=== PATIENT | male | born 1950 | race Caucasian/White ===

== ENCOUNTER 2018-01-19 16:47 | Inpatient (IN) | payer MEDICARE, OTHER ==
[~2018-01-19] VITALS: Ht 177.8 cm; Wt 112.5 kg
[2018-01-19 16:54] VITALS: BP 179/79; PULSE 78; RESP 18; TEMP 98.3; O2SAT 97
[2018-01-19] MEDS ORDERED: NITROGLYCERIN 2% OINT 1 GM PACKET TOP ONE (17:00)
[2018-01-19] MEDS ORDERED: ONDANSETRON HCL 4 MG/2 ML VIAL IV PUSH ONE (17:00)
[2018-01-19] MEDS ORDERED: MORPHINE SULFATE 4 MG/ML INJ IV PUSH ONE (17:00)
[2018-01-19] MEDS: METOPROLOL TARTRATE 5 MG/5 ML VIAL IVS SCH ×4 (17:00→17:25)
[2018-01-19 17:02] VITALS: BP_SYST 179; BP_SYST 201; BP_DIAS 101; BP_DIAS 77; PULSE 75; RESP 18; O2SAT 98
--- NOTE | 2018-01-19 17:02 | PD ---
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 Patient experience onset of chest pressure since this morning now going on about 10-11 hours. It has been intermittent, pressure -like substernal, rated about from 4 to as high as 6 out of 10, denied any shortness of breath or diaphoresis affiliated with this symptoms. The patient has a history of a triple bypass within the last 5 years. No known drug allergy Past medical history significant for coronary artery disease, triple bypass, hypercholesterolemia, hypertension. PFSH Social History Tobacco Use: No Allergies-Medications (Allergen,Severity, Reaction): Coded Allergies: No Known Allergies (Unverified , 01/19/18) Reported Meds & Prescriptions Reported Meds & Active Scripts Active Reported Oxycodone (Oxycodone HCl) 5 Mg Cap 5 Mg PO DAILY NEEDED PRN Aspirin 81 Mg Chew 81 Mg CHEW DAILY Vitamin D3 (Cholecalciferol) 2,000 Unit Cap 2,000 Units PO DAILY Vitamin B Complex (B-Complex Vitamins) 1 Tab 1,000 Mcg PO DAILY Hydralazine HCl 10 Mg Tablet 1 Tab PO TID Atorvastatin (Atorvastatin Calcium) 80 Mg Tab 80 Mg PO HS Carvedilol 25 Mg Tab 25 Mg PO BID Irbesartan 300 Mg Tab 300 Mg PO DAILY Review of Systems General / Constitutional: No: Fever Eyes: No: Visual changes HENT: No: Headaches Cardiovascular: Positive: Chest Pain or Discomfort Respiratory: No: Shortness of Breath Gastrointestinal: No: Abdominal Pain Genitourinary: No: Dysuria Musculoskeletal: No: Pain Skin: No Rash Neurologic: No: Weakness Psychiatric: No: Depression Endocrine: No: Polydipsia Hematologic/Lymphatic: No: Easy Bruising Physical Exam Narrative GENERAL: SKIN: Warm and dry. HEAD: Atraumatic. Normocephalic. EYES: Pupils equal and round. No scleral icterus. No injection or drainage. ENT: No nasal bleeding or discharge. Mucous membranes pink and moist. NECK: Trachea midline. No JVD. CARDIOVASCULAR: Regular rate and rhythm. RESPIRATORY: No accessory muscle use. Clear to auscultation. Breath sounds equal bilaterally. GASTROINTESTINAL: Abdomen soft, non-tender, nondistended. MUSCULOSKELETAL: Extremities without clubbing, cyanosis, or edema. No obvious deformities. NEUROLOGICAL: Awake and alert. No obvious cranial nerve deficits. Motor grossly within normal limits. Five out of 5 muscle strength in the arms and legs. Normal speech. PSYCHIATRIC: Appropriate mood and affect; insight and judgment normal. Data Data Last Documented VS Vital Signs Date Time Temp Pulse Resp B/P (MAP) Pulse Ox O2 Delivery O2 Flow Rate FiO2 01/19/18 17:38 62 18 165/70 (101) 97 Room Air 01/19/18 16:54 98.3 Orders Orders Electrocardiogram (01/19/18 16:49) B-Type Natriuretic Peptide (01/19/18 16:49) Ckmb (Isoenzyme) Profile (01/19/18 16:49) Complete Blood Count With Diff (01/19/18 16:49) Comprehensive Metabolic Panel (01/19/18 16:49) Prothrombin Time / Inr (Pt) (01/19/18 16:49) Act Partial Throm Time (Ptt) (01/19/18 16:49) Troponin I (01/19/18 16:49) Lipase (01/19/18 16:49) Chest, Single Ap (01/19/18 16:49) Ecg Monitoring (01/19/18 16:49) Bilateral Bp Monitoring (01/19/18 16:49) Iv Access Insert/Monitor (01/19/18 16:49) Oximetry (01/19/18 16:49) Oxygen Administration (01/19/18 16:49) Morphine Inj (Morphine Inj) (01/19/18 17:00) Nitroglycerin 2% Oint (Nitroglycerin 2% (01/19/18 17:00) Metoprolol Tartrate Inj (Lopressor Inj) (01/19/18 17:00) Ondansetron Inj (Zofran Inj) (01/19/18 17:00) CKMB (01/19/18 16:50) CKMB% (01/19/18 16:50) Admit Order (Ed Use Only) (01/19/18 18:02) Labs Laboratory Tests Test 01/19/18 16:50 White Blood Count 6.7 TH/MM3 Red Blood Count 4.59 MIL/MM3 Hemoglobin 14.4 GM/DL Hematocrit 42.7 % Mean Corpuscular Volume 93.0 FL Mean Corpuscular Hemoglobin 31.3 PG Mean Corpuscular Hemoglobin Concent 33.6 % Red Cell Distribution Width 12.6 % Platelet Count 176 TH/MM3 Mean Platelet Volume 7.9 FL Neutrophils (%) (Auto) 63.7 % Lymphocytes (%) (Auto) 13.9 % Monocytes (%) (Auto) 15.6 % Eosinophils (%) (Auto) 5.5 % Basophils (%) (Auto) 1.3 % Neutrophils # (Auto) 4.2 TH/MM3 Lymphocytes # (Auto) 0.9 TH/MM3 Monocytes # (Auto) 1.1 TH/MM3 Eosinophils # (Auto) 0.4 TH/MM3 Basophils # (Auto) 0.1 TH/MM3 CBC Comment DIFF FINAL Differential Comment Prothrombin Time 10.8 SEC Prothromb Time International Ratio 1.1 RATIO Activated Partial Thromboplast Time 30.2 SEC Blood Urea Nitrogen 14 MG/DL Creatinine 0.71 MG/DL Random Glucose 99 MG/DL Total Protein 7.6 GM/DL Albumin 4.0 GM/DL Calcium Level 9.2 MG/DL Alkaline Phosphatase 68 U/L Aspartate Amino Transf (AST/SGOT) 24 U/L Alanine Aminotransferase (ALT/SGPT) 32 U/L Total Bilirubin 0.8 MG/DL Sodium Level 126 MEQ/L Potassium Level 4.2 MEQ/L Chloride Level 93 MEQ/L Carbon Dioxide Level 26.7 MEQ/L Anion Gap 6 MEQ/L Estimat Glomerular Filtration Rate 110 ML/MIN Total Creatine Kinase 112 U/L Creatine Kinase MB 1.4 NG/ML Troponin I LESS THAN 0.02 NG/ML B-Type Natriuretic Peptide 174 PG/ML Lipase 230 U/L [facility] Medical Decision Making Medical Screen Exam Complete: Yes Emergency Medical Condition: Yes Medical Record Reviewed: Yes Interpretation(s) EKG shows a normal sinus rhythm at 72 bpm, first-degree AV block, no acute ST elevation PR pattern noted. There is some incomplete bundle branch block pattern. Differential Diagnosis STEMI versus non-STEMI versus PE versus pneumonia versus hypertensive emergency Narrative Course Patient's blood pressure was 225/105, at the bedside when the patient stated that his pain had decreased to about 2 out of 10... The patient makes us aware that he has taken four 81 mg aspirins prior to arrival. Coagulation profile is within normal limits CBC shows no leukocytosis, no anemia, normal platelet count, and no left shift. Electrolytes shows hyponatremia 126, otherwise the rest of the electrolytes are all within normal limits including glucose of 99. Liver functions and pancreatic functions are all within normal limits. First set of cardiac enzymes are negative. And the beta natruretic peptide is 174 mildly elevated Chest x-ray was read by radiologist as a possible cardiomegaly difficult to rule out a small left infiltrate, and believe that the increased density overlying the left lower chest could be related to cardiomegaly.... Upon evaluation based on the patient's presenting symptoms, there is no coughing there is no fever there is no runny nose there is no URI type symptoms to corroborate a possible infiltrate at this time. Diagnosis Primary Impression: Accelerated hypertension Additional Impression: Chest pain Admitting Information Admitting Physician Requests: Observation Scripts Ticagrelor (Brilinta) 90 Mg Tab 90 MG PO BID for Blood Clot Prevention for 30 Days, #60 TAB 11 Refills Prov: Ed Baker MD 01/21/18 Santi Deleon MD Jan 19, 2018 17:02
[2018-01-19 17:05] LABS: AUTOMATED NEUTROPHIL # 4.2 TH/MM3 (1.8-7.7); BASOPHIL # 0.1 TH/MM3 (0-0.2); BASOPHIL % 1.3 % (0.0-2.0); EOSINOPHIL # 0.4 TH/MM3 (0-0.4); EOSINOPHIL % 5.5 % (0.0-4.0); HEMATOCRIT 42.7 % (39.0-51.0); HEMOGLOBIN 14.4 GM/DL (13.0-17.0); LYMPH % 13.9 % (9.0-44.0); LYMPHOCYTE # 0.9 TH/MM3 (1.0-4.8); MEAN CORPUSCULAR HEMOGLOBIN 31.3 PG (27.0-34.0); MEAN CORPUSCULAR HGB CONC 33.6 % (32.0-36.0); MEAN PLATELET VOLUME 7.9 FL (7.0-11.0); MONO % 15.6 % (0.0-8.0); MONOCYTE # 1.1 TH/MM3 (0-0.9); NEUT % 63.7 % (16.0-70.0); PLATELET COUNT 176 TH/MM3 (150-450); RED BLOOD COUNT 4.59 MIL/MM3 (4.50-5.90); RED CELL DISTRIBUTION WIDTH 12.6 % (11.6-17.2); WHITE BLOOD COUNT 6.7 TH/MM3 (4.0-11.0)
[2018-01-19 17:16] LABS: CHLORIDE 93 MEQ/L (98-107); SODIUM (NA) 126 MEQ/L (136-145)
[2018-01-19 17:19] LABS: CALCIUM 9.2 MG/DL (8.5-10.1); GLUCOSE,RANDOM 99 MG/DL (74-106)
[2018-01-19] MEDS ORDERED: CARV25TA PO (17:19)
[2018-01-19] MEDS ORDERED: ASPI-516 CHEW (17:19)
[2018-01-19] MEDS ORDERED: VITATAB11 PO (17:19)
[2018-01-19] MEDS ORDERED: IRBE300T11 PO (17:19)
[2018-01-19] MEDS ORDERED: HYDR-3798 PO (17:19)
[2018-01-19] MEDS ORDERED: VITA2000 PO (17:19)
[2018-01-19] MEDS ORDERED: ATOR80TA45 PO (17:19)
--- NOTE | 2018-01-19 17:19 | RADRPT ---
EXAM DATE/TIME: 01/19/2018 16:51 [facility] COMPARISON: No previous studies available for comparison. INDICATIONS : Chest pain. MEDICAL HISTORY : Hypertension. SURGICAL HISTORY : CABG. Right shoulder replacement. ENCOUNTER: Initial ACUITY: 1 day PAIN SCORE: 6/10 LOCATION: Bilateral chest FINDINGS: A single view of the chest demonstrates increased opacification over the left lung may be related to the cardiomegaly. Difficult to rule out a small left infiltrate. The right lung is clear. Right shoul elisa hemiarthroplasty. Numerous sternal wires.. The cardiomediastinal contours are unremarkable. Oss eous structures are intact. CONCLUSION: Increased density overlies the left lower chest could related to cardiomegaly. Ed Rios MD on January 19, 2018 at 17:15 Board Certified Radiologist. This report was verified electronically.
[2018-01-19 17:20] LABS: BICARBONATE 26.7 MEQ/L (21.0-32.0); BLOOD UREA NITROGEN 14 MG/DL (7-18)
[2018-01-19 17:21] LABS: INTERNATIONAL NORMALIZED RATIO 1.1 RATIO; PROTHROMBIN TIME - PATIENT 10.8 SEC (9.8-11.6)
[2018-01-19 17:22] LABS: ALT (GPT) 32 U/L (12-78); AST (GOT) 24 U/L (15-37)
[2018-01-19 17:23] LABS: CREATININE 0.71 MG/DL (0.60-1.30); GLOMERULAR FILTRATION RATE 110 ML/MIN (>89)
[2018-01-19 17:24] LABS: TOTAL BILIRUBIN ADULT 0.8 MG/DL (0.2-1.0); TOTAL PROTEIN 7.6 GM/DL (6.4-8.2)
[2018-01-19 17:25] LABS: ALKALINE PHOSPHATASE 68 U/L (45-117)
[2018-01-19 17:27] LABS: TROPONIN I LESS THAN 0.02 NG/ML (0.02-0.05)
[2018-01-19 17:38] VITALS: BP 165/70; PULSE 62; RESP 18; O2SAT 97
[2018-01-19 18:25] VITALS: BP 165/78; PULSE 68; RESP 17; O2SAT 96
[2018-01-19] MEDS ORDERED: ASPIRIN 81 MG CHEW TAB CHEW ONE (19:00)
[2018-01-19] MEDS ORDERED: ATORVASTATIN 80 MG TAB PO SCH (21:00)
[2018-01-19] MEDS ORDERED: CARVEDILOL 12.5 MG TAB PO SCH (21:00)
[2018-01-19] MEDS ORDERED: OXYC1CAP PO (21:08)
[2018-01-19 22:00] VITALS: PULSE 61
[2018-01-19] MEDS: ATORVASTATIN 40 MG TAB PO SCH (22:10)
[2018-01-19 22:13] VITALS: BP 188/80
[2018-01-19] MEDS ORDERED: cloNIDine HCL 0.1 MG TAB PO ONE (23:00)
[2018-01-19] MEDS: ACETAMINOPHEN 325 MG TAB PO PRN (23:10)
[2018-01-20] VITALS (10 sets, daily range): BP systolic 137–197; BP diastolic 65–97; PULSE 58–95; RESP 16–22; TEMP 96.1–97.7; O2SAT 90–97
[2018-01-20] MEDS ORDERED: LOSARTAN 50 MG TAB PO SCH (06:30)
[2018-01-20] MEDS ORDERED: CARVEDILOL 12.5 MG TAB PO SCH (06:30)
[2018-01-20] MEDS ORDERED: hydrALAZINE HCL 10 MG TAB PO SCH ×2 (06:30→13:00)
[2018-01-20] MEDS ORDERED: hydrALAZINE HCL 10 MG TAB PO ONE (07:45)
[2018-01-20] MEDS ORDERED: cloNIDine HCL 0.1 MG TAB PO PRN (07:45)
[2018-01-20] MEDS ORDERED: IRBESARTAN 150 MG TAB PO SCH ×2 (09:00)
[2018-01-20 09:10] LABS: CALCIUM 9.5 MG/DL (8.5-10.1)
[2018-01-20 09:14] LABS: CREATININE 0.56 MG/DL (0.60-1.30)
[2018-01-20] MEDS ORDERED: REGADENOSON INJ 0.4 MG/5 ML SYR IV ONE (13:15)
--- NOTE | 2018-01-20 13:19 | HHI.HP ---
[facility] Primary [facility] Physician Non-Staff Admission Diagnosis ACS, ACCELERATED HTN Diagnoses: (1) Chest pressure Diagnosis: Principal Travel History International Travel<30 Days: No Contact w/Intl Traveler <30 Da: No Traveled to Known Affected Are: No History of Present Illness This is a 67-year-old male with known history of hypertension, hyperlipidemia, coronary disease status post CABG, chronic right shoulder pain who presented to the hospital because of abdominal pain, chest pressure, shortness of breath. Patient states that he is down here visiting from [place] for another 2 weeks. Approximately 2 days ago he started developing a mid abdominal discomfort with gas type pressure. He did use Gas-X with some relief but not complete resolution. Pressure sensation did not improve and the pain started to go up higher in his epigastric region and he states that it gets worse whenever he eats, whenever he does not eat it does improve. Yesterday he started developing shortness of breath, and because that reason he was concerned that it may be underlying cardiac issue. He denies any actual chest pain, he has not had any nausea, vomiting, diaphoresis, lightheadedness, dizziness. Patient does have a medical office asst in [place] in his last stress test was done in January 2017 in which he underwent a myocardial perfusion study which patient do not indicate that there was any abnormality. Patient had workup done emergency department patient was found to have elevated blood pressure. Patient states that lately his blood pressures been running in the 170s. His doctor in [place] has been adjusting medications to improve his blood pressure. Patient was on Apresoline to 25 mg 3 times daily, however it made him too tired so they went back down to 10 mg 3 times daily. After discussing with the patient his risk factors and presenting symptoms. The patient and family at bedside are in agreement with moving forward with evaluating for any underlying ischemia with stress test. Patient is asymptomatic currently. Review of Systems Respiratory: COMPLAINS OF: Shortness of breath Cardiovascular: COMPLAINS OF: Chest pain Gastrointestinal: COMPLAINS OF: Abdominal pain Except as stated in HPI: all other systems reviewed are Neg Past Family Social History Past Medical History Hypertension Hyperlipidemia Coronary artery disease Chronic right shoulder pain Past Surgical History Coronary bypass surgery three-vessel Right shoulder surgery Benign prostate tumor removed Cataract surgery Reported Medications Reported Meds & Active Scripts Active Reported Oxycodone (Oxycodone HCl) 5 Mg Cap 5 Mg PO DAILY NEEDED PRN Aspirin 81 Mg Chew 81 Mg CHEW DAILY Vitamin D3 (Cholecalciferol) 2,000 Unit Cap 2,000 Units PO DAILY Vitamin B Complex (B-Complex Vitamins) 1 Tab 1,000 Mcg PO DAILY Hydralazine HCl 10 Mg Tablet 1 Tab PO TID Atorvastatin (Atorvastatin Calcium) 80 Mg Tab 80 Mg PO HS Carvedilol 25 Mg Tab 25 Mg PO BID Irbesartan 300 Mg Tab 300 Mg PO DAILY Allergies: Coded Allergies: No Known Allergies (Unverified , 01/19/18) Family History Reviewed is significant for mother with heart disease, father was healthy without any significant chronic medical illnesses Social History Patient quit smoking 30 years ago, prior to that he smoked one half pack of cigarettes a day since he was 24 years old. He does drink 2 beers daily. Denies any illicit drug Physical Exam Vital Signs Vital Signs Date Time Temp Pulse Resp B/P (MAP) Pulse Ox O2 Delivery O2 Flow Rate FiO2 01/20/18 12:00 97.7 64 20 156/71 (99) 95 01/20/18 08:00 62 01/20/18 08:00 97.4 58 20 187/84 (118) 95 01/20/18 05:33 97.4 66 18 182/97 (125) 97 170/84 (112) 01/20/18 00:00 97.3 64 22 189/77 (114) 93 01/19/18 22:13 188/80 (116) 01/19/18 22:00 61 01/19/18 20:58 01/19/18 18:25 68 17 165/78 (107) 96 Room Air 01/19/18 17:38 62 18 165/70 (101) 97 Room Air 01/19/18 17:02 97 Room Air 01/19/18 17:02 97 Room Air 01/19/18 17:02 98 Room Air 01/19/18 17:02 75 18 201/101 (134) 179/77 (111) 01/19/18 16:54 98.3 78 18 179/79 (112) 97 Physical Exam GENERAL: Well-developed, well-nourished, in no acute distress. alert and orientated HEENT: Head is normocephalic without any lesions or masses noted. Facial features are symmetric. Eyes: Pupils equal round reactive to light. Extraocular muscles are intact. Conjunctivae were clear. Oropharyngeal: Pharynx without any erythema edema. Tongue is midline without deviation. Buccal mucosa is moist without any masses or lesions NECK: Supple without any masses. Trachea midline no deviation. No JVD, no bruits are appreciated CARDIAC: Regular rhythm, regular rate. S1/S2 are heard. No murmurs gallops or rubs. LUNGS: Clear to auscultation bilaterally. No wheeze, rhonchi or rales. No use of accessory muscles on inspiration or expiration. ABDOMEN: Soft, nontender. Nondistended. Bowel sounds heard in all 4 quadrants. No organomegaly or masses. Negative rebound, negative guarding EXTREMITIES: No edema, pulses are equal bilaterally. No cyanosis or clubbing NEUROLOGY: Mood and affect appear appropriate. Cranial nerves II through XII grossly intact. Muscle strength 5/5 in upper and lower extremities bilaterally. Deep tendon reflexes are 2+ in upper and lower extremities bilaterally. Laboratory Laboratory Tests Test 01/19/18 16:50 01/19/18 18:46 01/20/18 01:15 01/20/18 08:45 White Blood Count 6.7 Red Blood Count 4.59 Hemoglobin 14.4 Hematocrit 42.7 Mean Corpuscular Volume 93.0 Mean Corpuscular Hemoglobin 31.3 Mean Corpuscular Hemoglobin Concent 33.6 Red Cell Distribution Width 12.6 Platelet Count 176 Mean Platelet Volume 7.9 Neutrophils (%) (Auto) 63.7 Lymphocytes (%) (Auto) 13.9 Monocytes (%) (Auto) 15.6 Eosinophils (%) (Auto) 5.5 Basophils (%) (Auto) 1.3 Neutrophils # (Auto) 4.2 Lymphocytes # (Auto) 0.9 Monocytes # (Auto) 1.1 Eosinophils # (Auto) 0.4 Basophils # (Auto) 0.1 CBC Comment DIFF FINAL Differential Comment Prothrombin Time 10.8 Prothromb Time International Ratio 1.1 Activated Partial Thromboplast Time 30.2 Blood Urea Nitrogen 14 10 Creatinine 0.71 0.56 Random Glucose 99 106 Total Protein 7.6 Albumin 4.0 Calcium Level 9.2 9.5 Alkaline Phosphatase 68 Aspartate Amino Transf (AST/SGOT) 24 Alanine Aminotransferase (ALT/SGPT) 32 Total Bilirubin 0.8 Sodium Level 126 132 Potassium Level 4.2 4.2 Chloride Level 93 97 Carbon Dioxide Level 26.7 27.0 Anion Gap 6 8 Estimat Glomerular Filtration Rate 110 145 Total Creatine Kinase 112 Creatine Kinase MB 1.4 Troponin I LESS THAN 0.02 LESS THAN 0.02 LESS THAN 0.02 B-Type Natriuretic Peptide 174 Lipase 230 Result Diagram: 01/19/180 01/20/18 0845 Imaging Last Impressions Chest X-Ray 01/19/18 1649 Signed Impressions: Service Date/Time: Friday, January 19, 2018 16:51 - CONCLUSION: Increased density overlies the left lower chest could related to cardiomegaly. MD Ana Crump VTE Risk Assessment Ana VTE Risk Assessment: Mod/High Risk (score >= 2) Ana Risk Assessment Model Point Value = 1 Point Value = 2 Point Value = 3 Point Value = 5 Age 41-60 Minor surgery BMI > 25 kg/m2 Swollen legs Varicose veins or History of unexplained or recurrent spontaneous Oral contraceptives or hormone replacement Sepsis (< 1 month) Serious lung disease, including pneumonia (< 1 month) Abnormal pulmonary function Acute myocardial infarction Congestive heart failure (< 1 month) History of inflammatory bowel disease Medical patient at bed rest Age 61-74 Arthroscopic surgery Major open surgery (> 45 min) Laparoscopic surgery (> 45 min) Malignancy Confined to bed (> 72 hours) Immobilizing plaster cast Central venous access Age >= 75 History of VTE Family history of VTE Factor V Leiden Prothrombin [id number] Lupus anticoagulant Anticardiolipin antibodies Elevated serum homocysteine Heparin-induced thrombocytopenia Other congenital or acquired thrombophilia Stroke (< 1 month) Elective arthroplasty Hip, pelvis, or leg fracture Acute spinal cord injury (< 1 month) Prophylaxis Regimen Total Risk Factor Score Risk Level Prophylaxis Regimen 0-1 Low Early ambulation 2 Moderate Order ONE of the following: *Sequential Compression Device (SCD) *Heparin 5000 units SQ BID 3-4 Higher Order ONE of the following medications: *Heparin 5000 units SQ TID *Enoxaparin/Lovenox 40 mg SQ daily (WT < 150 kg, CrCl > 30 mL/min) *Enoxaparin/Lovenox 30 mg SQ daily (WT < 150 kg, CrCl > 10-29 mL/min) *Enoxaparin/Lovenox 30 mg SQ BID (WT < 150 kg, CrCl > 30 mL/min) AND/OR *Sequential Compression Device (SCD) 5 or more Highest Order ONE of the following medications: *Heparin 5000 units SQ TID (Preferred with Epidurals) *Enoxaparin/Lovenox 40 mg SQ daily (WT < 150 kg, CrCl > 30 mL/min) *Enoxaparin/Lovenox 30 mg SQ daily (WT < 150 kg, CrCl > 10-29 mL/min) *Enoxaparin/Lovenox 30 mg SQ BID (WT < 150 kg, CrCl > 30 mL/min) AND *Sequential Compression Device (SCD) Assessment and Plan Assessment and Plan Chest pressure with associated shortness of breath -Patient with significant risk factors to include age, hypertension, hyperlipidemia, carotid artery disease status post CABG, history of tobacco use -Patient has been ruled out for acute coronary event with serial cardiac enzymes that are negative -Serial EKGs were performed and indicated sinus rhythm with first-degree AV block -Myocardial perfusion study performed and indicated moderate size, moderate severity perfusion defect -Continue aspirin, Coreg, nitropaste, ARB, Statin -Notified patient and of results and need for cardiology consult and cardiac cath for further eval, They understand and are in agreement with plan -Tried to contact patients medical office asst, Dr Montanez, in [place], he is in rd lab technician today, waiting for return phone call, (Nurse Shira: [phone]) -Consulted Cardiology, Dr Baker, Notified him of stress test result, He indicated that patient will need cardiac cath, has been scheduled for tomorrow AM Accelerated hypertension -Patient did have continued chest pressure shortness of breath with associated accelerated hypertension -Patient resumed on his home medications -Did increase to Apresoline 20 mg 3 times daily -Blood pressure has improved Hyperlipidemia -Resume Statin -Check lipid panel DVT prevention -Sequential compression devices Devon Cisneros Jan 20, 2018 13:19
--- NOTE | 2018-01-20 14:26 | RADRPT ---
EXAM DATE/TIME: 01/20/2018 13:05 [facility] COMPARISON: No previous studies available for comparison. INDICATIONS : Substernal chest pain. Angina. Myocardial infarction. DOSE: 35 mCi Tc99m Myoview at stress. 11 mCi Tc99m Myoview at rest. 0.4 mg Lexiscan STRESS SYMPTOMS: Short of breath. EJECTION FRACTION: 41% MEDICAL HISTORY : Hypertension. SURGICAL HISTORY : CABG ENCOUNTER: Initial ACUITY: 1 day PAIN SCALE: 6/10 LOCATION: Substernal chest TECHNIQUE: The patient underwent pharmacologic stress with infusion of prescribed dose. Continuous ECG tracing was monitored during stress. Gated SPECT imaging was performed after stress and conventional SPECT i maging was performed at rest. The examination was performed on a SPECT/CT scanner, both attenuation and non-corrected datasets were reviewed. FINDINGS: DISTRIBUTION: The maximum perfused segment at stress is in the lateral wall. PERFUSION STUDY: There is a moderate size moderate severity reversible defect involving the mid and apical segments of the anterior wall with associated hypokinesis. Ischemia is not excluded. This does extend to the ape x. GATED STUDY: There is hypokinesia involving the anterior wall and apex. No dyskinesia is seen CONCLUSION: 1. Moderate size moderate severity defect involving the mid and apical portions of the anterior wall including the apex. Ischemia is not excluded. RISK CATEGORY: Intermediate (1-3% Annual Mortality Rate) Kevin Blancas MD on January 20, 2018 at 14:22 Board Certified Radiologist. This report was verified electronically.
[2018-01-20] MEDS: hydrALAZINE HCL 10 MG TAB PO SCH ×2 (14:51→16:41)
[2018-01-20] MEDS ORDERED: NITROGLYCERIN 2% OINT 1 GM PACKET TOPICAL ONE (15:45)
[2018-01-20] MEDS: ASPIRIN 325 MG TAB PO SCH (16:40)
[2018-01-20] MEDS: ACETAMINOPHEN 325 MG TAB PO PRN ×2 (16:44→21:11)
--- NOTE | 2018-01-20 17:47 | EKG ---
Date Performed: 01/19/2018 Time Performed: 16:49:52 PTAGE: 67 years EKG: Sinus rhythm WITH FIRST DEGREE AV BLOCK MODERATE INTRAVENTRICULAR CONDUCTION DELAY ABNORMAL ECG INTERPRETATION BA SED ON A DEFAULT AGE OF 40 YEARS now consider inferior DE, age indeterminate NO PREVIOUS TRACING DOCTOR: Shiv Fortune Interpretating Date/Time 01/20/2018 17:47:49
--- NOTE | 2018-01-20 17:48 | EKG ---
Date Performed: 01/20/2018 Time Performed: 01:10:45 PTAGE: 67 years EKG: Sinus rhythm WITH FIRST DEGREE AV BLOCK POSSIBLE INFERIOR MYOCARDIAL INFARCTION ABNORMAL ECG now consider inferio r MN, age indeterminate PREVIOUS TRACING : 01/19/2018 19.34 DOCTOR: Shiv Fortune Interpretating Date/Time 01/20/2018 17:48:07
--- NOTE | 2018-01-20 17:48 | EKG ---
Date Performed: 01/19/2018 Time Performed: 19:34:37 PTAGE: 67 years EKG: Sinus rhythm WITH FIRST DEGREE AV BLOCK INFERIOR MYOCARDIAL INFARCTION ABNORMAL ECG now consider inferior UT, age indeterminate PREVIOUS TRACING : 01/19/2018 16.49 DOCTOR: Shiv Fortune Interpretating Date/Time 01/20/2018 17:47:59
[2018-01-20] MEDS ORDERED: NITROGLYCERIN 2% OINT 1 GM PACKET TOPICAL SCH (18:00)
[2018-01-20] MEDS ORDERED: ATORVASTATIN 40 MG TAB PO SCH (21:00)
[2018-01-20] MEDS: CARVEDILOL 12.5 MG TAB PO SCH (21:10)
[2018-01-20] MEDS: NITROGLYCERIN 2% OINT 1 GM PACKET TOPICAL SCH (21:11)
[2018-01-20] MEDS: ATORVASTATIN 40 MG TAB PO SCH (21:11)
[2018-01-21] VITALS (12 sets, daily range): BP systolic 96–180; BP diastolic 64–85; PULSE 63–83; RESP 15–20; TEMP 97.4–99.1; O2SAT 95–100
[2018-01-21] MEDS: NITROGLYCERIN 2% OINT 1 GM PACKET TOPICAL SCH ×2 (03:42→21:35)
[2018-01-21] MEDS: ACETAMINOPHEN 325 MG TAB PO PRN (03:43)
--- NOTE | 2018-01-21 08:04 | HHI.PR ---
Subjective Remarks 67-year-old male who was seen in follow-up today for accelerated hypertension, chest pain, abnormal stress test. Patient is doing well. Denies any recurrent chest pressure or burning sensation. Patient transferring to the main hospital for catheterization this morning. Vital signs are stable. Patient remains afebrile Objective Vitals Vital Signs Date Time Temp Pulse Resp B/P (MAP) Pulse Ox O2 Delivery O2 Flow Rate FiO2 01/21/18 04:00 97.4 63 15 129/70 (89) 96 01/21/18 00:00 99.1 80 16 96/64 (75) 100 01/20/18 23:00 68 01/20/18 20:00 96.1 79 16 137/75 (95) 90 01/20/18 17:50 139/65 (89) 01/20/18 16:45 65 01/20/18 16:37 64 196/90 (125) 01/20/18 16:00 97.7 95 19 197/97 (130) 97 01/20/18 12:00 97.7 64 20 156/71 (99) 95 I/O 01/20/18 01/20/18 01/20/18 01/21/18 01/21/18 01/21/18 07:00 15:00 23:00 07:00 15:00 23:00 Intake Total 120 ml 750 ml 0 ml Output Total 800 ml Balance 120 ml -50 ml 0 ml Intake Oral 120 ml 750 ml 0 ml Output Urine Total 800 ml # Voids 1 Result Diagram: 01/19/18 1650 01/20/18 0845 Objective Remarks GENERAL: Well-developed, well-nourished, in no acute distress. alert and orientated HEENT: Head is normocephalic without any lesions or masses noted. Facial features are symmetric. Eyes: Extraocular muscles are intact. Conjunctivae were clear. NECK: Supple without any masses. Trachea midline no deviation. No JVD, CARDIAC: Regular rhythm, regular rate. S1/S2 are heard. No murmurs gallops or rubs. LUNGS: Clear to auscultation bilaterally. No wheeze, rhonchi or rales. No use of accessory muscles on inspiration or expiration. ABDOMEN: Soft, nontender. Nondistended. Bowel sounds heard in all 4 quadrants. No organomegaly or masses. Negative rebound, negative guarding EXTREMITIES: No edema, pulses are equal bilaterally. No cyanosis or clubbing NEUROLOGY: Mood and affect appear appropriate. Cranial nerves II through XII grossly intact. Moving all extremities, speech is clear Urinary Catheter: No Vascular Central Line Catheter: No A/P Assessment and Plan Chest pressure with associated shortness of breath -Patient with significant risk factors to include age, hypertension, hyperlipidemia, carotid artery disease status post CABG, history of tobacco use -Patient has been ruled out for acute coronary event with serial cardiac enzymes that are negative -Serial EKGs were performed and indicated sinus rhythm with first-degree AV block -Myocardial perfusion study performed and indicated moderate size, moderate severity perfusion defect -Continue aspirin, Coreg, nitropaste, ARB, Statin -Consulted lead developer Dr. Baker, plans for cardiac catheterization this morning Accelerated hypertension -Patient did have continued chest pressure shortness of breath with associated accelerated hypertension -Patient resumed on his home medications -Coreg 25 mg twice daily -Losartan 100 mg daily -Increase to Apresoline 20 mg 3 times daily -Blood pressure has improved Hyperlipidemia -Resume Statin -Awaiting lipid panel DVT prevention -Sequential compression devices Discharge Planning Discharge planning depending upon cardiac catheterization results and once cleared by cardiology. Devon Cisneros Jan 21, 2018 08:04
[2018-01-21] MEDS: ASPIRIN 325 MG TAB PO SCH (08:12)
[2018-01-21] MEDS: LOSARTAN 50 MG TAB PO SCH (08:13)
[2018-01-21] MEDS: hydrALAZINE HCL 10 MG TAB PO SCH ×3 (08:13→18:11)
[2018-01-21] MEDS: CARVEDILOL 12.5 MG TAB PO SCH ×2 (08:13→21:33)
[2018-01-21 10:38] LABS: CHOLESTEROL/ HDL RATIO 1.91 RATIO; HDL CHOLESTEROL 56.8 MG/DL (40.0-60.0)
[2018-01-21] MEDS ORDERED: NS 1000P @30 MLS/HR (KVO) IV SCH (11:00)
--- NOTE | 2018-01-21 12:46 | TR ---
Date Performed: 01/20/2018 Time Performed: 13:35:38 DOCTOR: Amish Lee DRUG LIST: CLINICAL HISTORY: REASON FOR TEST: REASON FOR ENDING: OBSERVATION: CONCLUSION: COMMENTS: Lexiscan stress test was performed under standard four minute protocol. Radionuclide was injected one minute prior to ending the test. No electrocardiographic abormalities were present t o suggest ischemia. Nuclear imaging and interpretation are pending.
[2018-01-21] MEDS ORDERED: HEPARIN-NS/PF FLUSH BAG 1,000 ML IV FLUSH ONE (13:54)
[2018-01-21] MEDS ORDERED: MIDAZOLAM HCL 2 MG/2 ML VIAL ONE (13:54)
[2018-01-21] MEDS ORDERED: NITROGLYCERIN INJ 5 ML ONE (13:55)
[2018-01-21] MEDS ORDERED: HEPARIN SODIUM - IV 10,000 UNITS/10 ML VIAL ONE (13:55)
[2018-01-21] MEDS ORDERED: CANGRELOR TETRASODIUM 50,000 MCG VIAL ONE (14:21)
[2018-01-21] MEDS ORDERED: TICAGRELOR 90 MG TAB PO ONE (14:33)
[2018-01-21] MEDS ORDERED: LIDOCAINE 2% JELLY 30 ML TUBE TOP PRN (14:45)
[2018-01-21] MEDS ORDERED: MISC INFORMATION XX ONE (14:45)
[2018-01-21] MEDS ORDERED: BACITRACIN OINT 0.9 GM PKT TOP ONE (14:45)
[2018-01-21] MEDS ORDERED: BRIL90TA PO (14:48)
--- NOTE | 2018-01-21 14:56 | CATHPROC ---
[employer] HIS Report Study Information Study Number Admission Scheduled Start Study Start [id number] Jan 19 2018 6:28PM 01/21/2018 Jan 21 2018 1:34PM [place] [facility] Cardiac Catheterization Admit Source Facility Department Emergency department [facility] Physician and Clinical Staff Initial Ed Arellano Valve Lapper Kelly Calderon,PUSHPA Recorder Irena Stallworth,RT(R) Scrub Qian ChouRT(R) (BS) Procedures Performed Procedure Location (Site) Vessel Name Coronary Angiograms LCA Left Coronary Coronary Angiograms RCA Right Coronary Coronary Angiograms SWENSON-LAD Left Coronary Coronary Angiograms SVG-OM CIRC Coronary Angiograms SVG-RCA Right Coronary Drug Eluting Inflatio RCA Mid Right Coronary L Heart Cath Wire insertion Radial (left) Radial Art. 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 Description Size Mfg Part Number Used/Scraped COPILOT VALVE, BLEEDBACK [id number] 14:32 [employer] Used CONTROL *[id number] TRANSDUCER, TRUWAVE [id number] 14:00 MOHAMUD HAMMOND * Used W/STOCKCOCK *[id number] *[id number] *[id number] [id number] *[id number] [id number] *[id number] 14:00 Number 100 PACK, CCL CUSTOM * Used *[id number] 14:00 Number 100 SUPPORT, ARTERIAL ADULT [id number] *[id number] Used [id number] 14:00 [employer] PACER PEN, SKIN DUAL W/ RULER * Used *[id number] 14:10 [employer] JL 4.0 DXTERITY CATHETER FR 5 Used *[id number] 14:29 [employer] STENT, 4.0 22MM CUAUHTEMOC 4.0 22MM Used *[id number] 14:31 INAPPIN 30 BELA INDEFLATOR Used *[id number] BAND, RADIAL COMPRESSION TR [id number] 14:36 INAPPIN 24CM Used SHORT 24 *[id number] BAND, RADIAL COMPRESSION TR [id number] 14:56 INAPPIN 24CM Used SHORT 24 *[id number] BAND, RADIAL COMPRESSION TR [id number] 14:56 [employer] 24CM Used SHORT 24 *[id number] SHEATH, FR6 RADIAL PRELUDE 14:00 INAPPIN FR 6 [id number] Used EASE 11CM [id number] 14:00 INAPPIN WIRE, EXCHANGE 260CM 3MMJ 260CM Used *[id number] 14:00 [employer] OMNIPAQUE, 350 MG, 150ML 150ML [id number] Used [id number] 14:00 [facility] BLANKET,WARM AIR CCL * Used *[id number] WIRE, RUNTHROUGH NS FLOPPY [id number] 14:20 [employer] 180CM Used .014 180CM *[id number] Equipment Model, Serial, Lot Number and Expiration Data Description Model Number Serial Number Lot Number Expiration Date JL 4.0 DXTERITY CATHETER [id number] 10-06-2020 STENT, 4.0 22MM CUAUHTEMOC [id number] 07-05-2019 History: Current Medications Medication Dosage/Unit Route Frequency Last Date/Time Taken COZAAR Statins (any) ASA HYDRALAZINE CARVEDILOL History: Allergies Allergy Reaction No Known Allergies History: Risk Factors Family History of Hypertension Dyslipidemia Previous [place] Previous Heart Failure Premature CAD Yes Yes Yes No No Prior Valve Prior PCI Prior CABG Prior CABGDate Surgery No No Yes 01/26/2016 Cerebrovascular Peripheral Artery Chronic Lung On Dialysis Diabetes Disease Disease Disease No No No No No History: Symptoms/Diagnosis Selection Items Chest pain SOB History: Stress Tests Stress or Imaging Studies Performed Yes Standard Exercise Stress Test No Stress Echo No Stress Test SPECT Stress Test SPECT Result Stress Test SPECT Ischemia Risk/Extent Yes Positive Intermediate Stress Test CMR No Cardiac CTA Coronary Calcium Score No No History: Other Disease Selection Items CAD HTN History: Other Current Smoker Method Quit Packs a Day Years Used Pack Years No Cigarettes 30 Years Ago 1 12 12 Labs Hgb (g/dl) Hct (%) WBC (l/cumm) Platelets (thousands) 11.60-17.00 35.00-51.00 4.00-11.00 150.00-450.00 14.4 42.7 6.7 176 Glucose (mg/dl) BUN (mg/dl) Creatinine (mg/dl) BUN:Creatinine (1:x) 74.00-106.00 7.00-18.00 0.50-1.30 10.00-20.00 106 10 0.5 20 Na (meq/l) K (meq/l) 136.00-145.00 3.50-5.10 132 4.2 INR (PTT:PT) 0.90-1.10 1.1 Troponin I (ng/ml) CPK (u/l) CPK-MB (ng/ML) 0.02-0.05 26.00-308.00 0.50-3.60 0.02 112 Not Drawn Medication Medication Total Dose (Bolus/Oral) Medication Total Dosage/Unit 1% XYLOCAINE 5 mL BRILINTA 180 mg FENTANYL 50 mcg HEPARIN 8000 units NTG (IC) 200 mcg VERSED 2 mg Medications (Bolus/Oral) Medication Time Given Dosage/Unit Administered By Reason VERSED 01/21/2018 2:06:50 PM 2 mg Kelly Calderon 2 mg VERSED given in lab by Kelly Calderon RN in Left Antecubital via Peripheral IV. Ordered by Ed Silvestre. FENTANYL 01/21/2018 2:07:14 PM 50 mcg Kelly Calderon 50 mcg FENTANYL given in lab by Kelly Calderon RN in Left Antecubital via Peripheral IV. Ordered by Ed Baker. 1% XYLOCAINE 01/21/2018 2:09:09 PM 5 mL Ed Baker 5 mL 1% XYLOCAINE given in lab by Ed Baker in Left Radial via Subcutaneous. NTG (IC) 01/21/2018 2:10:18 PM 200 mcg Ed Baker 200 mcg NTG (IC) given in lab by Ed Baker in Left Radial via Intra-coronary. HEPARIN 01/21/2018 2:10:32 PM 5000 units Kelly Calderon 5000 units HEPARIN given in lab by Kelly Calderon RN in Left Antecubital via Peripheral IV. Ordered by Ed Baker. HEPARIN 01/21/2018 2:21:27 PM 3000 units Kelly Calderon 3000 units HEPARIN given in lab by Kelly Calderon RN in Left Antecubital via Peripheral IV. Ordered by Ed Baker. BRILINTA 01/21/2018 2:40:13 PM 180 mg Kelly Calderon 180 mg BRILINTA given in lab by Kelly Calderon RN via Oral. Ordered by Ed Baker. Medication (Drip) Medication Time Given Dosage/Unit Concentration/Unit Diluent (ml) Solution IV Solutions 01/21/2018 1:49:48 PM 50 mL (IV) NaCl .9 IV Solutions given in lab by Kelly Calderon RN in Left Antecubital via Peripheral IV. Pump/Drip Caleb w using NaCl .9. KENGREAL BOLUS 01/21/2018 2:25:07 PM 17 mL 17 mL KENGREAL BOLUS given in lab by Kelly Calderon RN in Left Antecubital via Peripheral IV. Order ed by Ed Baker. KENGREAL DRIP 01/21/2018 2:28:29 PM 4 mcg/kg/min 50 mg 250 NaCl .9 4 mcg/kg/min KENGREAL DRIP given in lab by Kelly Calderon RN in Left Antecubital via Peripheral IV. Pump/Drip Flow = 140.4 ml/hr using NaCl .9 with a concentration of 50 mg in 250 ml. Ordered by Ed Baker. Initial Case Assessment Cardiovascular HR Rhythm NIBP Chest Pain 73 SR 208/96 0 Edema Present Skin color Skin None Normal Warm Dry Circulatory - Right Pulses Dorsalis Pedis Femoral Radial 3 3 3 Scale (0,1,2,3,4,d) Scale (0,1,2,3,4,d) Neurological State Oriented to time-place- Alert Moves all extremities person Respiration - General Respiration Rate SpO2 (%) (B/min) 12 96 Chronological Log Time Study Chronological Log 13:42:51 Patient arrived via Bed. 13:42:56 Patient Name, D.O.B, / Armband Verified By R.N. 13:49:17 Consent signed by the physician and the patient and verified by the [facility] staff. 13:49:17 Pre-op and post- op instructions given; patient acknowledges understanding of instruction s. 13:49:24 Allens test performed on the left radial and ulnar artery. 13:49:38 Patient has been NPO for More than 6Hrs. 13:49:40 Skin Breakdown- none per pt 13:49:44 Patient Warmer Placed on the Table. 13:49:46 Mauro Prominences Protected 13:49:48 IV Solutions given in lab by Kelly Calderon RN in Left Antecubital via Peripheral IV. P ump/Drip Flow using NaCl .9. 13:49:48 A # 20 IV was noted in the Antecubital (left). Grade = 0 13:49:49 History and physical on the chart or being dictated. Assessment: Initial Case, HR=73 BPM, Rhythm=SR, CVNC=148/96 mmhg, Chest Pain=0, Edema=None, Col or=Normal, Skin = Warm, Dry 13:49:50 Right Pulses: Asim Ped=3, Femoral=3, Radial=3 Neurological: State=Alert, Ox3, HURLEY Respiration: Resp=12 B/min, SpO2=96 % Vitals capture started with the following parameters, Patient=Adult, Interval=5 min, Initial Pr uozqst=863 mmHg, 13:49:52 Deflation Rate=5 mmHg, Cuff placed on Unknown 13:50:00 Reference ECG taken 13:51:47 HR=76 bpm, HYNS=485/101 mmhg, SpO2=95.0 %, Resp=19 B/min 13:55:40 HR=73 bpm, NJAN=856/96 mmhg, SpO2=96.0 %, Resp=18 B/min 13:56:06 Left radial and Right groin prepped with 2% chlorhexidine, and draped after a 3 min. waitin g time. 13:59:59 MD paged 14:00:35 MD responded 14:00:43 HR=70 bpm, JPCL=422/91 mmhg, SpO2=95.0 %, Resp=19 B/min 14:01:51 Pressure channel 1 zeroed. 14:05:32 MD arrived. 14:05:40 HR=73 bpm, SPAR=423/93 mmhg, SpO2=95.0 %, Resp=20 B/min Time Out. Correct patient, correct procedure, correct physician, power injector not loaded with contrast with surgical 14:05:43 team present. Time Out Concurred by MD and individual staff in procedure. 14:06:49 Case Start 14:06:50 2 mg VERSED given in lab by Kelly Calderon, RN in Left Antecubital via Peripheral IV. Orde red by Ed Baker. 14:07:14 50 mcg FENTANYL given in lab by Kelly Calderon, PUSHPA in Left Antecubital via Peripheral IV. Ordered by Ed Baker. 14:09:09 5 mL 1% XYLOCAINE given in lab by Ed Baker in Left Radial via Subcutaneous. 14:09:47 Access site was Left Radial Artery. A SHEATH, FR6 RADIAL PRELUDE EASE 11CM FR 6 was advanced into the Radial (left) using the Alayna bo 14::01 technique. 14:10:18 200 mcg NTG (IC) given in lab by Ed Baker in Left Radial via Intra-coronary. 5000 units HEPARIN given in lab by Kelly Calderon, PUSHPA in Left Antecubital via Peripheral IV. O rdered by Samuel, 14:10:32 Ed. 14:10:41 HR=77 bpm, ZQMS=801/89 mmhg, SpO2=92 %, Resp=24 B/min A JL 4.0 DXTERITY CATHETER FR 5 was advanced over a wire. OMNIPAQUE, 350 MG, 150ML 150ML was us ed for 14:11:54 injections. 14:13:21 The LCA was injected and visualized at various angles. OMNIPAQUE, 350 MG, 150ML 150ML used . Recorded Pressure: Ao, HR=75, Condition=Condition 1 14:13:31 (Aorta) Ao 141/66/98 After removing the current catheter a JR 4.0 INFINITI CATHETER FR 5 was advanced over a WIRE, E XCHANGE 260CM 14:14:30 3MMJ 260CM. 14:15:38 HR=79 bpm, ENLO=922/79 mmhg, SpO2=92 %, Resp=20 B/min 14:16:07 The RCA was injected and visualized at various angles. OMNIPAQUE, 350 MG, 150ML 150ML used . 14:17:35 The SVG-OM was injected and visualized at various angles. OMNIPAQUE, 350 MG, 150ML 150ML us ed. After removing the current catheter a MPA-2 INFINITI CATHETER FR 5 was advanced over a WIRE, EX CHANGE 260CM 14:18:16 3MMJ 260CM. 14:21:02 HR=84 bpm, WIMN=289/85 mmhg, SpO2=93.0 %, Resp=13 B/min 14:21:17 The SVG-RCA was injected and visualized at various angles. OMNIPAQUE, 350 MG, 150ML 150ML u sed. STUMP. 3000 units HEPARIN given in lab by Kelly Calderon, PUSHPA in Left Antecubital via Peripheral IV. O rdered by Samuel, 14:21:27 Ed. After removing the current catheter a ANIKA INFINITI CATHETER FR 5 was advanced over a WIRE, EXCH LUIZ 260CM 14:23:19 3MMJ 260CM. 14:24:37 The SWENSON-LAD was injected and visualized at various angles. OMNIPAQUE, 350 MG, 150ML 150ML used. 17 mL KENGREAL BOLUS given in lab by Kelly Calderon, RN in Left Antecubital via Peripheral IV. Ordered by Samuel, 14:25:07 Ed. 14:25:39 HR=82 bpm, HTDQ=498/91 mmhg, SpO2=94.0 %, Resp=16 B/min After removing the current catheter a HS 90CM GUIDE CATHETER FR 6 was advanced over a WIRE, EXC HANGE 260CM 14:25:57 3MMJ 260CM. 14:27:49 A WIRE, RUNTHROUGH NS FLOPPY .014 180CM 180CM was inserted via Radial (left). 14:28:19 Interventional wire has crossed the lesion in the RCA 4 mcg/kg/min KENGREAL DRIP given in lab by Kelly Calderon, RN in Left Antecubital via Peripher al IV. Pump/Drip 14:28:29 Flow = 140.4 ml/hr using NaCl .9 with a concentration of 50 mg in 250 ml. Ordered by Lamine Baker. A STENT, 4.0 22MM CUAUHTEMOC 4.0 22MM was advanced through a HS 90CM GUIDE CATHETER FR 6 over a WIRE, 14:29:42 RUNTHROUGH NS FLOPPY .014 180CM 180CM. 14:30:38 HR=82 bpm, CRUM=967/89 mmhg, SpO2=97.0 %, Resp=13 B/min A STENT, 4.0 22MM CUAUHTEMOC 4.0 22MM was deployed using a 30 BELA INDEFLATOR at 18 atmospheres for 22 seconds in 14:31:12 the RCA Mid. 14:32:32 Delivery device removed 14:32:51 Wire removed 14:33:06 Catheter was removed 14:35:06 Case End 14:35:41 HR=83 bpm, TQPH=324/87 mmhg, SpO2=95.0 %, Resp=15 B/min Radial Compression Device Used. 13 mLs of air placed in BAND, RADIAL COMPRESSION TR SHORT 24 24 CM. Affected 14:37:02 hand 96 % O2 saturation. 14:40:07 No case complications noted. 14:40:08 Cine recording checked. 14:40:08 Holding Area notified of successful intervention. 14:40:12 Bedside Report will be given. 14:40:13 180 mg BRILINTA given in lab by Kelly Calderon RN via Oral. Ordered by Ed Baker. 14:40:13 Implantable Device card placed in patient's chart. 14:40:17 A Left Heart Cath was performed. 14:40:40 HR=79 bpm, GFTA=345/84 mmhg, SpO2=96.0 %, Resp=17 B/min 14:45:04 Vitals capture stopped. 14:50:18 Patient moved to [facility] End Study - Contrast Media Used In Study Contrast Total Opened (mL) Total Used (mL) Total Wasted (mL) Omnipaque 105 105 0 End Study - Maximum Contrast Load Max Contrast Load (mL) 1170.0 End Study - Radiation Exposure Fluoro Time (minutes) 5.7 End Study - Patient Disposition Complications Transferred To Interventional Outcome No Telemetry Bed successful
[2018-01-21] MEDS: cloNIDine HCL 0.1 MG TAB PO PRN ×2 (16:00→21:33)
--- NOTE | 2018-01-21 16:21 | MA ---
cc: Ed Baker MD DATE: 01/21/2018 DATE OF PROCEDURE: 01/21/2018. INDICATION: Chest pain, abnormal stress test, intermediate high risk. PROCEDURES PERFORMED: 1. Fluoroscopy with interpretation. 2. Coronary angiography. 3. Coronary artery bypass graft angiography. 4. Percutaneous intervention with drug-eluting stent to the right coronary artery. METHOD: Risks, benefits and alternatives were discussed with the patient. The patient understood and consented to the procedure. The patient was brought into the catheterization lab, placed on the catheterization table. The left wrist was prepped and draped in sterile fashion. The left wrist anesthetized with 2% lidocaine. Left radial artery was cannulated and a 6-[place], 7-cm sheath was placed without difficulty. FINDINGS: Intraventricular hemodynamics shows 141/66 mmHg. CORONARY ANGIOGRAPHY: 1. Left main coronary has a 70-75% distal stenosis. 2. Left anterior descending coronary has 30% proximal, but the mid-segment is occluded. 3. Left circumflex gives rise to a ramus which appears to have mild luminal irregularities. The proximal circumflex itself has about 50% stenosis. There is an obtuse marginal branch which has competitive flow, a small posterolateral distal branch off the circumflex. 4. Right coronary is a very large, dominant vessel, gives rise to a posterior descending and posterolateral branch. He mid-right coronary has a 90% calcific stenosis. CORONARY BYPASS GRAFT ANGIOGRAPHY: 1. Left internal mammary appears to be widely patent. Left anterior descending coronary is small caliber size but back-fills the diagonal branch, appears to have minor luminal irregularities, not well visualized, but visualized well enough to know there is no significant hemodynamic stenosis. 2. Saphenous vein graft to an obtuse marginal branch is widely patent. 3. Saphenous vein graft to the right coronary artery is occluded. PERCUTANEOUS INTERVENTION: It seems that the symptoms are very suggestive with exertional dyspnea and chest pain in addition to moderate inferior wall abnormality, all points consistent with occluded vein graft. We will attempt for revascularization via the [place] right coronary artery. Right coronary artery is selectively engaged with a 6-[place] hockey-stick guide catheter. A 0.014-inch, 180 cm E-Line [employer] Runthrough wire was navigated down the distal posterior descending branch. A 4.0 x 15 mm RX Resolute Harper drug-eluting stent was advanced to the mid-right coronary and deployed to 18 atmospheres. Repeat angiography showed no residual stenosis, LAURA 3 flow. Heparin and Cangrelor were administered throughout the entire procedure to maintain appropriate anticoagulation. Brilinta was administered at the completion of the procedure. CONCLUSIONS: 1. Severe [place] 3-vessel coronary artery disease. 2. Two of three coronary bypass grafts patent. The saphenous vein graft to the right coronary artery is occluded. 3. Successful percutaneous intervention with drug-eluting stent to the right coronary artery. PLAN: The patient will monitored closely for any post-procedural complications. We were able to approach from the left wrist to minimize bleeding post-procedurally. He will wear a HemoBand. No troponin elevation. No EKG changes and he is currently asymptomatic. We will see how he does over the course of the next few hours, He is eager to leave today. If he does well, without any immediate post-procedural complications such as arrhythmias or bleeding, may consider discharge and followup on an outpatient basis with his primary care doctor. I gave him my card. He can get a hold of me locally if he has any issues. Ed Baker MD [place]/[facility] , 02:53 PM , 04:19 PM
[2018-01-21] MEDS ORDERED: IOHEXOL 350 MG/ML 100 ML BTL (for Cath Lab) OTHER ONE (16:29)
[2018-01-21] MEDS: ATORVASTATIN 40 MG TAB PO SCH (21:32)
[2018-01-21] MEDS: TICAGRELOR 90 MG TAB PO SCH (21:33)
[2018-01-22] VITALS (14 sets, daily range): BP systolic 160–194; BP diastolic 88–94; PULSE 62–78; RESP 16; TEMP 97.6; O2SAT 94–95
[2018-01-22 04:21] LABS: AUTOMATED NEUTROPHIL # 5.4 TH/MM3 (1.8-7.7); BASOPHIL % 0.7 % (0.0-2.0); EOSINOPHIL # 0.1 TH/MM3 (0-0.4); EOSINOPHIL % 1.8 % (0.0-4.0); HEMATOCRIT 38.4 % (39.0-51.0); HEMOGLOBIN 13.7 GM/DL (13.0-17.0); LYMPH % 8.2 % (9.0-44.0); LYMPHOCYTE # 0.6 TH/MM3 (1.0-4.8); MEAN CORPUSCULAR HEMOGLOBIN 32.2 PG (27.0-34.0); MEAN CORPUSCULAR HGB CONC 35.8 % (32.0-36.0); MEAN PLATELET VOLUME 8.2 FL (7.0-11.0); MONO % 15.6 % (0.0-8.0); MONOCYTE # 1.1 TH/MM3 (0-0.9); NEUT % 73.7 % (16.0-70.0); PLATELET COUNT 160 TH/MM3 (150-450); RED BLOOD COUNT 4.27 MIL/MM3 (4.50-5.90); RED CELL DISTRIBUTION WIDTH 13.1 % (11.6-17.2); WHITE BLOOD COUNT 7.3 TH/MM3 (4.0-11.0)
[2018-01-22] MEDS: NITROGLYCERIN 2% OINT 1 GM PACKET TOPICAL SCH ×2 (04:33→08:58)
[2018-01-22] MEDS: cloNIDine HCL 0.1 MG TAB PO PRN (04:36)
[2018-01-22 04:42] LABS: BICARBONATE 23.9 MEQ/L (21.0-32.0); CALCIUM 8.5 MG/DL (8.5-10.1); CREATININE 0.64 MG/DL (0.60-1.30)
[2018-01-22 04:45] LABS: CHOLESTEROL/ HDL RATIO 1.89 RATIO; HDL CHOLESTEROL 53.7 MG/DL (40.0-60.0)
--- NOTE | 2018-01-22 08:19 | PD.CARD.PN ---
Subjective Subjective Remarks feeling well, no chest pain. Objective Medications Current Medications Medications (Trade) Dose Ordered Sig/Bayron Route Start Time Stop Time Status Last Admin (Lipitor) 80 mg HS PO 01/19/18 21:00 01/21/18 21:32 (Tylenol) 650 mg Q4H PRN PO 01/19/18 23:00 01/21/18 03:43 (Coreg) 25 mg BID PO 01/20/18 21:00 01/21/18 21:33 (Cozaar) 100 mg DAILY PO 01/21/18 09:00 01/21/18 08:13 (Apresoline) 20 mg TID PO 01/20/18 13:00 01/21/18 18:11 (Aspirin) 325 mg DAILY PO 01/20/18 16:00 01/21/18 08:12 (Nitroglycerin 2% Oint) 1 inch Q6H TOPICAL 01/20/18 22:00 01/22/18 04:33 Sodium Chloride 1,000 ml @ 30 mls/hr Q24H IV 01/21/18 11:00 (Aspirin Chew) 81 mg DAILY PO 01/22/18 09:00 (Brilinta) 90 mg BID PO 01/21/18 21:00 01/21/18 21:33 (Xylocaine 2% Jelly) 1 applic UNSCH X1 PRN TOP 01/21/18 14:45 01/22/18 14:44 (Catapres) 0.2 mg Q6H PRN PO 01/21/18 15:30 01/22/18 04:36 Vital Signs / I&O Vital Signs Date Time Temp Pulse Resp B/P (MAP) Pulse Ox O2 Delivery O2 Flow Rate FiO2 01/22/18 07:13 97.6 68 16 170/91 (117) 94 01/22/18 06:01 160/88 (112) 01/22/18 06:00 78 01/22/18 05:00 62 01/22/18 04:41 74 16 194/94 (127) 95 01/22/18 04:00 64 01/22/18 03:00 66 01/22/18 02:00 68 01/22/18 01:00 62 01/22/18 00:00 78 01/21/18 23:00 83 01/21/18 23:00 78 16 144/77 (99) 97 4/27/18 22:00 68 01/21/18 21:00 70 01/21/18 20:00 70 01/21/18 19:00 74 01/21/18 19:00 98.0 77 16 163/83 (109) 96 01/21/18 18:00 72 01/21/18 17:00 70 01/21/18 16:00 66 01/21/18 15:00 68 01/21/18 15:00 98.3 68 18 180/85 (116) 98 Manual Cuff/Palpation I/O 01/21/18 01/21/18 01/21/18 01/22/18 01/22/18 01/22/18 07:00 15:00 23:00 07:00 15:00 23:00 Intake Total 0 ml 475 ml 240 ml 240 ml Output Total 650 ml 900 ml Balance 0 ml 475 ml -410 ml -660 ml Intake Oral 0 ml 0 ml 240 ml 240 ml IV Total 475 ml Output Urine Total 650 ml 900 ml # Bowel Movements 0 Physical Exam GENERAL: SKIN: Warm and dry. HEAD: Atraumatic. Normocephalic. EYES: Pupils equal and round. No scleral icterus. No injection or drainage. ENT: No nasal bleeding or discharge. NECK: Trachea midline. No JVD. CARDIOVASCULAR: Regular rate and rhythm. no murmurs RESPIRATORY: No accessory muscle use. Clear to auscultation. Breath sounds equal bilaterally. GASTROINTESTINAL: Abdomen soft, non-tender, nondistended. MUSCULOSKELETAL: Extremities without clubbing, cyanosis, or edema. No obvious deformities. NEUROLOGICAL: Awake and alert. No obvious cranial nerve deficits. Normal speech. PSYCHIATRIC: Appropriate mood and affect; insight and judgment normal. Laboratory Laboratory Tests Test 01/22/18 03:27 White Blood Count 7.3 TH/MM3 Red Blood Count 4.27 MIL/MM3 Hemoglobin 13.7 GM/DL Hematocrit 38.4 % Mean Corpuscular Volume 90.0 FL Mean Corpuscular Hemoglobin 32.2 PG Mean Corpuscular Hemoglobin Concent 35.8 % Red Cell Distribution Width 13.1 % Platelet Count 160 TH/MM3 Mean Platelet Volume 8.2 FL Neutrophils (%) (Auto) 73.7 % Lymphocytes (%) (Auto) 8.2 % Monocytes (%) (Auto) 15.6 % Eosinophils (%) (Auto) 1.8 % Basophils (%) (Auto) 0.7 % Neutrophils # (Auto) 5.4 TH/MM3 Lymphocytes # (Auto) 0.6 TH/MM3 Monocytes # (Auto) 1.1 TH/MM3 Eosinophils # (Auto) 0.1 TH/MM3 Basophils # (Auto) 0.0 TH/MM3 CBC Comment DIFF FINAL Differential Comment Blood Urea Nitrogen 14 MG/DL Creatinine 0.64 MG/DL Random Glucose 94 MG/DL Calcium Level 8.5 MG/DL Sodium Level 132 MEQ/L Potassium Level 4.1 MEQ/L Chloride Level 97 MEQ/L Carbon Dioxide Level 23.9 MEQ/L Anion Gap 11 MEQ/L Estimat Glomerular Filtration Rate 124 ML/MIN Total Creatine Kinase 88 U/L Triglycerides Level 44 MG/DL Cholesterol Level 102 MG/DL LDL Cholesterol 40 MG/DL HDL Cholesterol 53.7 MG/DL Cholesterol/HDL Ratio 1.89 RATIO Assessment and Plan Problem List: (1) Chest pressure ICD Codes: R07.89 - Other chest pain Assessment and Plan PCI showing 2/3 bypass grafts patent, successful placement of INOCENCIO to RCA cont asa, Brilinta, statin ok for discharge after Hemoband removed. Shira Alfonso Jan 22, 2018 08:19
--- NOTE | 2018-01-22 08:49 | HHI.PR ---
Subjective Remarks Patient seen and examined this morning. Blood pressure noted to be elevated. Feels well anxious to go home. Is here on vacation. No CP or SOB. Needs coupon for Brillinta. Objective Vital Signs Date Time Temp Pulse Resp B/P (MAP) Pulse Ox O2 Delivery O2 Flow Rate FiO2 01/22/18 07:13 97.6 68 16 170/91 (117) 94 01/22/18 06:01 160/88 (112) 01/22/18 06:00 78 01/22/18 05:00 62 01/22/18 04:41 74 16 194/94 (127) 95 01/22/18 04:00 64 01/22/18 03:00 66 01/22/18 02:00 68 01/22/18 01:00 62 01/22/18 00:00 78 01/21/18 23:00 83 01/21/18 23:00 78 16 144/77 (99) 97 01/21/18 22:00 68 01/21/18 21:00 70 01/21/18 20:00 70 01/21/18 19:00 74 01/21/18 19:00 98.0 77 16 163/83 (109) 96 01/21/18 18:00 72 01/21/18 17:00 70 01/21/18 16:00 66 01/21/18 15:00 68 01/21/18 15:00 98.3 68 18 180/85 (116) 98 Manual Cuff/Palpation I/O 01/21/18 01/21/18 01/21/18 01/22/18 01/22/18 01/22/18 07:00 15:00 23:00 07:00 15:00 23:00 Intake Total 0 ml 475 ml 240 ml 240 ml Output Total 650 ml 900 ml Balance 0 ml 475 ml -410 ml -660 ml Intake Oral 0 ml 0 ml 240 ml 240 ml IV Total 475 ml Output Urine Total 650 ml 900 ml # Bowel Movements 0 Result Diagram: 01/22/18 0327 01/22/18 0327 Imaging Last Impressions Myocardial Perfusion Scan Nuc Med 01/20/18 0000 Signed Impressions: Service Date/Time: December 13:05 - CONCLUSION: 1. Moderate size moderate severity defect involving the mid and apical portions of the anterior wall including the apex. Ischemia is not excluded. RISK CATEGORY: Intermediate (1-3%% Annual Mortality Rate) Kevin Blancas MD Chest X-Ray 01/19/18 3709 Signed Impressions: Service Date/Time: Friday, January 19, 2018 16:51 - CONCLUSION: Increased density overlies the left lower chest could related to cardiomegaly. Ed Rios MD Objective Remarks GENERAL: Well-appearing, no acute distress SKIN: Warm and dry. HEAD: Normocephalic. EYES: No scleral icterus. No injection or drainage. NECK: Supple, trachea midline. No JVD or lymphadenopathy. CARDIOVASCULAR: Regular rate and rhythm without murmurs, gallops, or rubs. RESPIRATORY: Breath sounds equal bilaterally. No accessory muscle use. GASTROINTESTINAL: Abdomen soft, non-tender, nondistended. MUSCULOSKELETAL: No cyanosis, or edema. A/P Problem List: (1) CAD (coronary artery disease) ICD Code: I25.10 - Atherosclerotic heart disease of [place] coronary artery without angina pectoris (2) HTN (hypertension) ICD Code: I10 - Essential (primary) hypertension Assessment and Plan In summary this is a 59-year-old male patient who presented to the ER for chest pain and elevated blood pressure. Chest pain/coronary artery disease Stress test notable for moderate-sized deformity involving the mid and apical portions of the anterior wall and apex. Patient received a cath by Dr. Baker which showed severe three-vessel coronary artery disease. 2 of the 3 coronary bypass graft were patent. Saphenous vein graft to the right coronary artery occluded. Successful percutaneous intervention with drug-eluting stent to the right coronary was performed. Continue aspirin, Brilinta, statin Cleared for discharge after Hemabate and removed Hypertension Continue carvedilol 25 mg twice daily Losartan 100 mg daily Hyperlipidemia Lipitor 80 mg at bedtime Discharge Planning Cleared by cardiology for discharge D/C home today, discussed with CM and pharm dc Shazia Silver MD Jan 22, 2018 08:49
[2018-01-22] MEDS: LOSARTAN 50 MG TAB PO SCH (08:57)
[2018-01-22] MEDS: CARVEDILOL 12.5 MG TAB PO SCH (08:57)
[2018-01-22] MEDS: hydrALAZINE HCL 10 MG TAB PO SCH (08:57)
[2018-01-22] MEDS: ASPIRIN 325 MG TAB PO SCH (08:58)
[2018-01-22] MEDS: TICAGRELOR 90 MG TAB PO SCH (08:58)
[2018-01-22] MEDS ORDERED: ASPIRIN 81 MG CHEW TAB PO SCH (09:00)
--- NOTE | 2018-01-22 09:43 | HHI.DCPOC ---
Discharge Care Plan Diagnosis: (1) Chest pressure (2) CAD (coronary artery disease) (3) HTN (hypertension) Goals to Promote Your Health * To prevent worsening of your condition and complications * To maintain your health at the optimal level Directions to Meet Your Goals Take your medications as prescribed Follow your dietary instruction Follow activity as directed Keep your appointments as scheduled Take your immunizations and boosters as scheduled If your symptoms worsen call your PCP, if no PCP go to Urgent Care Center or Emergency Room Smoking is Dangerous to Your Health. Avoid second hand smoke Call the 24-hour hour crisis hotline for domestic abuse at Shazia Damon MD Jan 22, 2018 09:43
[2018-01-22] MEDS ORDERED: BRIL90TA PO (10:19)
[2018-01-22] MEDS ORDERED: COLA100C5 PO (13:17)
--- NOTE | 2018-01-22 14:46 | HHI.DS ---
Discharge Summary Admission Date Jan 19, 2018 at 18:28 Discharge Date: Jan 22, 2018 Admitting Diagnosis ACS, ACCELERATED HTN (1) Chest pressure Diagnosis: Principal ICD Codes: R07.89 - Other chest pain CBC/BMP: 01/22/18 0327 01/22/18 0327 Significant Findings Laboratory Tests Test 01/19/18 16:50 01/19/18 18:46 01/20/18 01:15 01/20/18 08:45 Monocytes (%) (Auto) 15.6 % (0.0-8.0) Eosinophils (%) (Auto) 5.5 % (0.0-4.0) Lymphocytes # (Auto) 0.9 TH/MM3 (1.0-4.8) Monocytes # (Auto) 1.1 TH/MM3 (0-0.9) Activated Partial Thromboplast Time 30.2 SEC (24.3-30.1) Sodium Level 126 MEQ/L (136-145) 132 MEQ/L (136-145) Chloride Level 93 MEQ/L (98-107) 97 MEQ/L (98-107) Troponin I LESS THAN 0.02 NG/ML LESS THAN 0.02 NG/ML LESS THAN 0.02 NG/ML B-Type Natriuretic Peptide 174 PG/ML (0-100) Creatinine 0.56 MG/DL (0.60-1.30) Test 01/21/18 05:30 01/22/18 03:27 Cholesterol Level 109 MG/DL (120-200) 102 MG/DL (120-200) Red Blood Count 4.27 MIL/MM3 (4.50-5.90) Hematocrit 38.4 % (39.0-51.0) Neutrophils (%) (Auto) 73.7 % (16.0-70.0) Lymphocytes (%) (Auto) 8.2 % (9.0-44.0) Monocytes (%) (Auto) 15.6 % (0.0-8.0) Lymphocytes # (Auto) 0.6 TH/MM3 (1.0-4.8) Monocytes # (Auto) 1.1 TH/MM3 (0-0.9) Sodium Level 132 MEQ/L (136-145) Chloride Level 97 MEQ/L (98-107) PE at Discharge GENERAL: Well-appearing, no acute distress SKIN: Warm and dry. HEAD: Normocephalic. EYES: No scleral icterus. No injection or drainage. NECK: Supple, trachea midline. No JVD or lymphadenopathy. CARDIOVASCULAR: Regular rate and rhythm without murmurs, gallops, or rubs. RESPIRATORY: Breath sounds equal bilaterally. No accessory muscle use. GASTROINTESTINAL: Abdomen soft, non-tender, nondistended. MUSCULOSKELETAL: No cyanosis, or edema. Hospital Course 5-year-old male patient presented to the ER for elevated blood pressure and for chest pain. Patient had a stress test was notable for moderate size deformity involving the mid and apical portion of the anterior wall and apex. Patient received a heart cath by Dr. Baker which showed three-vessel coronary artery disease. 2 of the 3 coronary bypass grafts were patent. Saphenous vein graft to the right coronary excluded. Successful percutaneous intervention with drug- eluting stent to the right coronary was performed. The patient was started on Brilinta and aspirin. He was continued on his carvedilol and losartan. The patient was cleared by cardiology for discharge home. He said to follow-up with his transfer agent and PCP upon return home. Pt Condition on Discharge: Stable Discharge Disposition: Discharge Home Discharge Instructions DIET: Follow Instructions for: Heart Healthy Diet Activities you can perform: Weight Bearing as Yan Follow up Referrals: PCP Follow-up - 3 Weeks PCP Follow-up New Medications: Ticagrelor (Brilinta) 90 Mg Tab 90 MG PO BID for Blood Clot Prevention for 30 Days, #60 TAB Continued Medications: Aspirin (Aspirin) 81 Mg Chew 81 MG CHEW DAILY, TAB 0 Refills Atorvastatin (Atorvastatin) 80 Mg Tab 80 MG PO HS for Cholesterol Management, #30 TAB 0 Refills B-Complex Vitamins (Vitamin B Complex) 1 Tab 1000 MCG PO DAILY Carvedilol (Carvedilol) 25 Mg Tab 25 MG PO BID, #60 TAB 0 Refills Cholecalciferol (Vitamin D3) 2,000 Unit Cap 2000 UNITS PO DAILY for Nutritional Supplement, #1 BOTTLE 0 Refills Hydralazine HCl (Hydralazine HCl) 10 Mg Tablet 1 TAB PO TID Irbesartan (Irbesartan) 300 Mg Tab 300 MG PO DAILY for Blood Pressure Management, #30 TAB 0 Refills Oxycodone (Oxycodone) 5 Mg Cap 5 MG PO daily as needed PRN for PAIN, CAP 0 Refills Shazia Damon MD Jan 22, 2018 14:46
== END 2018-01-22 10:45 | disposition home or self-care (01) | DRG 247 ==
LOC: PHED 16:47 → PHEDA 18:03 → OBSVTOIN 18:28 → PH3B 20:55 → HDIC 01-21 10:04 → HCIS 01-21 15:02
PROVIDERS: ADMIT Family Medicine; ATTEND Family Medicine
PROC: 4A023N7 Measurement of Cardiac Sampling and Pressure, Left Heart, Percutaneous Approach (ICD-10-PCS; 2018-01-21)
PROC: B2151ZZ Fluoroscopy of Left Heart using Low Osmolar Contrast (ICD-10-PCS; 2018-01-21)
PROC: B2111ZZ Fluoroscopy of Multiple Coronary Arteries using Low Osmolar Contrast (ICD-10-PCS; 2018-01-21)
PROC: 027034Z Dilation of Coronary Artery, One Artery with Drug-eluting Intraluminal Device, Percutaneous Approach (ICD-10-PCS; principal; 2018-01-21 10:30)
DX: I25.10 Atherosclerotic heart disease of native coronary artery without angina pectoris (principal); E87.1 Hypo-osmolality and hyponatremia; I10 Essential (primary) hypertension; I25.810 Atherosclerosis of coronary artery bypass graft(s) without angina pectoris; E78.5 Hyperlipidemia, unspecified; G89.29 Other chronic pain; M25.511 Pain in right shoulder; I44.0 Atrioventricular block, first degree; R10.9 Unspecified abdominal pain; Z82.49 Family history of ischemic heart disease and other diseases of the circulatory system; Z87.891 Personal history of nicotine dependence; Z95.1 Presence of aortocoronary bypass graft
CPT/HCPCS: 71045; 78452; 80048; 80053; 80061; 82550; 82552; 83690; 83880; 84484; 85025; 85610; 85730; 86850; 86900; 86901; 92928; 93005; 93017; 93454; 99152; 99153; A9502; C1769; C1874; C1887; C1893; C9460; J1644; J2250; J2785; J3010; Q9967

== ENCOUNTER 2018-01-22 13:03 | Inpatient (IN) | payer MEDICARE, OTHER ==
[2018-01-22] VITALS (11 sets, daily range): BP systolic 130–205; BP diastolic 65–92; PULSE 58–68; RESP 17–22; TEMP 96.8–98.5; O2SAT 96–99
[~2018-01-22] VITALS: Ht 177.8 cm; Wt 113.7 kg
[~2018-01-22 13:03] MED LIST: ASPI-516 CHEW; ATOR80TA45 PO; BRIL90TA PO; CARV25TA PO; HYDR-3798 PO; IRBE300T11 PO; OXYC1CAP PO; VITA2000 PO; VITATAB11 PO
[2018-01-22] MEDS ORDERED: COLA100C5 PO (13:17)
[2018-01-22] MEDS ORDERED: SODIUM CHLORIDE 0.9% FLUSH 10 ML FLUSH IVF PRN (13:30)
[2018-01-22] MEDS ORDERED: NITROGLYCERIN 0.4 MG SL 25 TABS/BTL SL ONE (13:30)
--- NOTE | 2018-01-22 13:41 | PD ---
HPI Chief Complaint: Pain: Acute or Chronic Time Seen by Provider: 13:19 Travel History International Travel<30 days: No Contact w/Intl Traveler<30days: No Traveled to known affect area: No History of Present Illness HPI 67-year-old male from [place] with a history of hypertension, hyperlipidemia, obesity, CABG 3 presents emergency department complaining of left midsternal pressure associated with shortness of breath that started while walking in his hotel room this morning. Says that the pain radiates from his left midsternal to his right midsternal region. Denies nausea or vomiting. Patient states that he was discharged about 11 AM this morning after receiving a cardiac stent yesterday. Says his pressure and discomfort lasted as long as he was walking and has significantly decreased as he has been in the emergency department today. States his pain currently is minimal denies any shortness of breath. Says that he has chronically elevated blood pressure at home with systolic blood pressure in the 170s. States that the installation engineer here at the hospital did not want to manage the blood pressure because of the recent stent placement. Says he does have a history reflux but states that this pressure is significantly more intense than the usual reflux symptoms. Says that he has a cardiology follow-up in March and his primary care physician appointment in January. says that she called Dr. Mckoy, on-call installation engineer who advised him to come in for evaluation of this chest pressure. PFSH Past Medical History Hx Anticoagulant Therapy: Yes Arthritis: Yes Autoimmune Disease: No Anxiety: No Depression: No Cancer: No Cardiac Catheterization: Yes Cardiovascular Problems: Yes High Cholesterol: Yes Chest Pain: No Coronary Artery Disease: Yes Diabetes: No Gastrointestinal Disorders: No Glaucoma: No Genitourinary: No Hepatitis: No Hiatal Hernia: No Hypertension: Yes Respiratory: Yes (SLEEP APNEA) Integumentary: No Seizures: Yes (once do to shoulder, alcohol) Thyroid Disease: No Tetanus Vaccination: > 5 Years Influenza Vaccination: Yes Past Surgical History Coronary Artery Bypass Graft: Yes Genitourinary Surgery: Yes (prostate small removed benign 2017) Joint Replacement: Yes (right shoulder implanted) Other Surgery: Yes (r rotator cuff) Social History Alcohol Use: Yes (few times a week) Tobacco Use: No (QUIT 30 YEARS AGO) Substance Use: No Allergies-Medications (Allergen,Severity, Reaction): Coded Allergies: No Known Allergies (Unverified , 4/28/18) Reported Meds & Prescriptions Reported Meds & Active Scripts Active Brilinta (Ticagrelor) 90 Mg Tab 90 Mg PO BID 30 Days Reported Colace (Docusate Sodium) 100 Mg Capsule 100 Mg PO DAILY Oxycodone (Oxycodone HCl) 5 Mg Cap 5 Mg PO DAILY NEEDED PRN Aspirin 81 Mg Chew 81 Mg CHEW DAILY Vitamin D3 (Cholecalciferol) 2,000 Unit Cap 2,000 Units PO DAILY Vitamin B Complex (B-Complex Vitamins) 1 Tab 1,000 Mcg PO DAILY Hydralazine HCl 10 Mg Tablet 1 Tab PO TID Atorvastatin (Atorvastatin Calcium) 80 Mg Tab 80 Mg PO HS Carvedilol 25 Mg Tab 25 Mg PO BID Irbesartan 300 Mg Tab 300 Mg PO DAILY Review of Systems Except as stated in HPI: all other systems reviewed are Neg Physical Exam Narrative GENERAL: Well-developed well-nourished in no apparent distress SKIN: Focused skin assessment warm/dry. HEAD: Atraumatic. Normocephalic. EYES: Pupils equal and round. No scleral icterus. No injection or drainage. ENT: No nasal bleeding or discharge. Mucous membranes pink and moist. NECK: Trachea midline. No JVD. CARDIOVASCULAR: Regular rate and rhythm. No murmur appreciated. RESPIRATORY: No accessory muscle use. Clear to auscultation. Breath sounds equal bilaterally. GASTROINTESTINAL: Abdomen soft, non-tender, nondistended. Hepatic and splenic margins not palpable. MUSCULOSKELETAL: No obvious deformities. No clubbing. No cyanosis. No edema. NEUROLOGICAL: Awake and alert. No obvious cranial nerve deficits. Motor grossly within normal limits. Normal speech. PSYCHIATRIC: Appropriate mood and affect; insight and judgment normal. Data Data Last Documented VS Vital Signs Date Time Temp Pulse Resp B/P (MAP) Pulse Ox O2 Delivery O2 Flow Rate FiO2 01/22/18 14:34 97.8 60 18 142/65 (90) 98 Room Air Orders Orders Electrocardiogram (01/22/18 ) Electrocardiogram (01/22/18 13:29) Ckmb (Isoenzyme) Profile (01/22/18 13:29) Complete Blood Count With Diff (01/22/18 13:29) Comprehensive Metabolic Panel (01/22/18 13:29) Magnesium (Mg) (01/22/18 13:29) Prothrombin Time / Inr (Pt) (01/22/18 13:29) Act Partial Throm Time (Ptt) (01/22/18 13:29) Troponin I (01/22/18 13:29) Ecg Monitoring (01/22/18 13:29) Bilateral Bp Monitoring (01/22/18 13:29) Iv Access Insert/Monitor (01/22/18 13:29) Oximetry (01/22/18 13:29) Oxygen Administration (01/22/18 13:29) Sodium Chloride 0.9% Flush (Ns Flush) (01/22/18 13:30) Nitroglycerin Sl (Nitrostat Sl) (01/22/18 13:30) Chest, Pa & Lat (01/22/18 13:29) CKMB (01/22/18 13:30) CKMB% (01/22/18 13:30) Enoxaparin Inj (Lovenox Inj) (01/22/18 14:45) Admit Order (Ed Use Only) (01/22/18 15:09) Labs Laboratory Tests Test 01/22/18 13:30 White Blood Count 7.8 TH/MM3 Red Blood Count 4.52 MIL/MM3 Hemoglobin 14.7 GM/DL Hematocrit 40.7 % Mean Corpuscular Volume 90.2 FL Mean Corpuscular Hemoglobin 32.5 PG Mean Corpuscular Hemoglobin Concent 36.1 % Red Cell Distribution Width 13.3 % Platelet Count 165 TH/MM3 Mean Platelet Volume 8.0 FL Neutrophils (%) (Auto) 76.6 % Lymphocytes (%) (Auto) 7.8 % Monocytes (%) (Auto) 13.7 % Eosinophils (%) (Auto) 1.3 % Basophils (%) (Auto) 0.6 % Neutrophils # (Auto) 6.0 TH/MM3 Lymphocytes # (Auto) 0.6 TH/MM3 Monocytes # (Auto) 1.1 TH/MM3 Eosinophils # (Auto) 0.1 TH/MM3 Basophils # (Auto) 0.0 TH/MM3 CBC Comment AUTO DIFF Differential Comment AUTO DIFF CONFIRMED Prothrombin Time 11.0 SEC Prothromb Time International Ratio 1.1 RATIO Activated Partial Thromboplast Time 31.9 SEC Blood Urea Nitrogen 11 MG/DL Creatinine 0.67 MG/DL Random Glucose 102 MG/DL Total Protein 7.6 GM/DL Albumin 4.3 GM/DL Calcium Level 8.6 MG/DL Magnesium Level 1.6 MG/DL Alkaline Phosphatase 73 U/L Aspartate Amino Transf (AST/SGOT) 25 U/L Alanine Aminotransferase (ALT/SGPT) 34 U/L Total Bilirubin 1.9 MG/DL Sodium Level 126 MEQ/L Potassium Level 4.2 MEQ/L Chloride Level 92 MEQ/L Carbon Dioxide Level 23.8 MEQ/L Anion Gap 10 MEQ/L Estimat Glomerular Filtration Rate 118 ML/MIN Total Creatine Kinase 124 U/L Creatine Kinase MB 2.4 NG/ML Troponin I 0.19 NG/ML MDM Medical Decision Making Medical Screen Exam Complete: Yes Emergency Medical Condition: Yes Differential Diagnosis ACS, unstable angina, angina, CAD, NSTEMI Narrative Course 67-year-old male from [place] with a history of hypertension, hyperlipidemia, obesity, CABG 3 presents emergency department complaining of left midsternal pressure associated with shortness of breath that started while walking in his hotel room this morning. Says that the pain radiates from his left midsternal to his right midsternal region. Denies nausea or vomiting. Patient states that he was discharged about 11 AM this morning after receiving a cardiac stent yesterday. Says his pressure and discomfort lasted as long as he was walking and has significantly decreased as he has been in the emergency department today. States his pain currently is minimal denies any shortness of breath. Says that he has chronically elevated blood pressure at home with systolic blood pressure in the 170s. States that the installation engineer here at the hospital did not want to manage the blood pressure because of the recent stent placement. Says he does have a history reflux but states that this pressure is significantly more intense than the usual reflux symptoms. Says that he has a cardiology follow-up in March and his primary care physician appointment in January. says that she called Dr. Mckoy, on-call installation engineer who advised him to come in for evaluation of this chest pressure. Blood pressure elevated at initial evaluation. Nitro sublingual administered. Heart rate 60 bpm. SaO2 100% RA. Blood pressure responded well to nitro. Chest pain minimal. EKG shows sinus rhythm at a rate 61. This EKG is changed from the previous EKG performed 01/20. The cardiac cath was performed 01/21. I do not see a repeat EKG after this procedure. My attending, Dr. Dodson discussed this case with Dr. Baker briefly, however he is environmental health officer for STEMI only. Call placed to Dr. Fortune. CBC & BMP Diagram 01/22/18 13:30 Total Protein 7.6, Albumin 4.3, Calcium Level 8.6, Magnesium Level 1.6, Alkaline Phosphatase 73, Aspartate Amino Transf (AST/SGOT) 25, Alanine Aminotransferase (ALT/SGPT) 34, Total Bilirubin 1.9 H Troponin elevated at 0.19. CK within normal limits. Lovenox administered in the ED. Pt took ASA, Brillinta, statin today. Patient will be admitted with chest pain, rule out ACS, elevated blood pressure. I spoke with Dr. Howard who accepted this admission. Physician Communication Physician Communication I spoke with Dr. Fortune, on-call installation engineer. He recommended trending the troponin for stability. In addition, monitor CPK for stability. He recommended patient take Brilinta, aspirin and remain n.p.o. until evaluated. Also recommends a dose of Lovenox. Diagnosis Primary Impression: CAD (coronary artery disease) Qualified Codes: I25.110 - Atherosclerotic heart disease of [place] coronary artery with unstable angina pectoris Additional Impressions: Chest pressure HTN (hypertension) Qualified Codes: I10 - Essential (primary) hypertension Admitting Information Admitting Physician Requests: Admit Condition: Stable Donna Gill Jan 22, 2018 13:41
[2018-01-22 13:47] LABS: BASOPHIL % 0.6 % (0.0-2.0); EOSINOPHIL # 0.1 TH/MM3 (0-0.4); EOSINOPHIL % 1.3 % (0.0-4.0); HEMATOCRIT 40.7 % (39.0-51.0); HEMOGLOBIN 14.7 GM/DL (13.0-17.0); LYMPH % 7.8 % (9.0-44.0); LYMPHOCYTE # 0.6 TH/MM3 (1.0-4.8); MEAN CELL VOLUME 90.2 FL (80.0-100.0); MEAN CORPUSCULAR HEMOGLOBIN 32.5 PG (27.0-34.0); MEAN CORPUSCULAR HGB CONC 36.1 % (32.0-36.0); MONO % 13.7 % (0.0-8.0); MONOCYTE # 1.1 TH/MM3 (0-0.9); NEUT % 76.6 % (16.0-70.0); PLATELET COUNT 165 TH/MM3 (150-450); RED BLOOD COUNT 4.52 MIL/MM3 (4.50-5.90); RED CELL DISTRIBUTION WIDTH 13.3 % (11.6-17.2); WHITE BLOOD COUNT 7.8 TH/MM3 (4.0-11.0)
[2018-01-22 13:54] LABS: INTERNATIONAL NORMALIZED RATIO 1.1 RATIO
[2018-01-22 14:05] LABS: ALBUMIN 4.3 GM/DL (3.4-5.0); ALT (GPT) 34 U/L (12-78); AST (GOT) 25 U/L (15-37); BICARBONATE 23.8 MEQ/L (21.0-32.0); BLOOD UREA NITROGEN 11 MG/DL (7-18); CALCIUM 8.6 MG/DL (8.5-10.1); CHLORIDE 92 MEQ/L (98-107); CREATININE 0.67 MG/DL (0.60-1.30); GLOMERULAR FILTRATION RATE 118 ML/MIN (>89); GLUCOSE,RANDOM 102 MG/DL (74-106); MAGNESIUM 1.6 MG/DL (1.5-2.5); SODIUM (NA) 126 MEQ/L (136-145)
[2018-01-22 14:10] LABS: ALKALINE PHOSPHATASE 73 U/L (45-117); TOTAL BILIRUBIN ADULT 1.9 MG/DL (0.2-1.0); TOTAL PROTEIN 7.6 GM/DL (6.4-8.2); TROPONIN I 0.19 NG/ML (0.02-0.05)
[2018-01-22] MEDS ORDERED: ENOXAPARIN SODIUM 100 MG/ML SYRINGE SQ ONE (14:45)
--- NOTE | 2018-01-22 14:57 | RADRPT ---
EXAM DATE/TIME: 01/22/2018 14:16 [facility] COMPARISON: No previous studies available for comparison. INDICATIONS : Chest tightness and shortness of breath post stent placement. MEDICAL HISTORY : Hypertension. SURGICAL HISTORY : CABG. Shoulder replacement, right. ENCOUNTER: [facility] ACUITY: 3 days PAIN SCORE: 2/10 LOCATION: Bilateral chest FINDINGS: The patient is status post sternotomy. Heart size is enlarged. There is a possible stent in the LAD r egion. The lungs are clear. No effusion is seen. There is a prosthetic right shoulder. CONCLUSION: Cardiomegaly. The patient is status post sternotomy. Ernesto Romo MD on January 22, 2018 at 14:53 Board Certified Radiologist. This report was verified electronically.
[2018-01-22] MEDS ORDERED: IOHEXOL 350 MG/ML 100 ML BTL (for Cath Lab) OTHER ONE (15:11)
[2018-01-22] MEDS ORDERED: IOHEXOL 350 MG/ML 50 ML BTL (for Cath Lab) OTHER ONE (15:11)
--- NOTE | 2018-01-22 15:22 | HHI.HP ---
[facility] Unknown Admission Diagnosis chest pain, r/o ACS, HTN Diagnoses: Travel History International Travel<30 Days: No Contact w/Intl Traveler <30 Da: No Traveled to Known Affected Are: No History of Present Illness 67-year-old male initially presented to ER for elevated blood pressure and for chest pain. Patient had a stress test was notable for moderate size deformity involving the mid and apical portion of the anterior wall and apex. Patient received a heart cath by Dr. Baker which showed three-vessel coronary artery disease. 2 of the 3 coronary bypass grafts were patent. Saphenous vein graft to the right coronary excluded. Successful percutaneous intervention with drug- eluting stent to the right coronary was performed. The patient was started on Brilinta and aspirin. He was continued on his carvedilol and losartan. The patient was cleared by cardiology for discharge home. He said to follow-up with his apprentice pattern maker and PCP upon return home. Patient walked several laps of the hospital floor, did not have any symptoms. Patient was walking to his hotel room and developed chest pain. He denies diaphoresis. He denies readiation of the chest pain. When it did not resolve he called the apprentice pattern maker instrument mechanic weapons system. Patient called the apprentice pattern maker instrument mechanic weapons system and was advised to come back to the ER. Er physician spoke with Dr. Fortune, on-call apprentice pattern maker. He recommended trending the troponin for stability. In addition, monitor CPK for stability. He recommended patient take Brilinta, aspirin and remain n.p.o. until evaluated. Also recommends a dose of Lovenox. Currently patient reports some lower abdominal pain, states he usually takes stool softners but hasnt had any while in hospital. He reports after getting the lovenox he felt immediately better, now endorses some pain around his heart. Review of Systems Constitutional: DENIES: Fever, Chills, Dizziness Eyes: DENIES: Blurred vision, Diplopia Respiratory: DENIES: Cough Cardiovascular: COMPLAINS OF: Chest pain, DENIES: Palpitations, Syncope, Dyspnea on Exertion Gastrointestinal: COMPLAINS OF: Abdominal pain, Constipation, DENIES: Nausea, Vomiting Genitourinary: DENIES: Urinary frequency, Urinary incontinence Musculoskeletal: DENIES: Joint pain, Muscle aches Neurologic: DENIES: Abnormal gait Psychiatric: DENIES: Mood changes Past Family Social History Past Medical History CAD s/p stent palcement Past Surgical History CABG prostate removed right shoulder implant Reported Medications Reported Meds & Active Scripts Active Brilinta (Ticagrelor) 90 Mg Tab 90 Mg PO BID 30 Days Reported Colace (Docusate Sodium) 100 Mg Capsule 100 Mg PO DAILY Oxycodone (Oxycodone HCl) 5 Mg Cap 5 Mg PO DAILY NEEDED PRN Aspirin 81 Mg Chew 81 Mg CHEW DAILY Vitamin D3 (Cholecalciferol) 2,000 Unit Cap 2,000 Units PO DAILY Vitamin B Complex (B-Complex Vitamins) 1 Tab 1,000 Mcg PO DAILY Hydralazine HCl 10 Mg Tablet 1 Tab PO TID Atorvastatin (Atorvastatin Calcium) 80 Mg Tab 80 Mg PO HS Carvedilol 25 Mg Tab 25 Mg PO BID Irbesartan 300 Mg Tab 300 Mg PO DAILY Allergies: Coded Allergies: No Known Allergies (Unverified , 01/22/18) Social History alcohol socailly quit tobacco 30 years ago denies ilicit substances Physical Exam Vital Signs Vital Signs Date Time Temp Pulse Resp B/P (MAP) Pulse Ox O2 Delivery O2 Flow Rate FiO2 01/22/18 14:34 97.8 60 18 142/65 (90) 98 Room Air 01/22/18 13:40 18 01/22/18 13:37 64 20 201/82 (121) 98 Room Air 199/91 (127) 01/22/18 13:32 98 Room Air 01/22/18 13:32 20 98 Room Air 01/22/18 13:24 64 18 201/82 (121) 98 Room Air 01/22/18 13:15 64 20 01/22/18 13:05 97.2 68 22 203/92 (129) 97 Physical Exam GENERAL: This is a well-nourished, well-developed patient, in no apparent distress. SKIN: No rashes, ecchymoses or lesions. Cool and dry. HEAD: Atraumatic. Normocephalic. No temporal or scalp tenderness. EYES: Pupils equal round and reactive. Extraocular motions intact. ENT: Nose without bleeding, purulent drainage or septal hematoma. Throat without erythema, tonsillar hypertrophy or exudate. Uvula midline. Airway patent. NECK: Trachea midline. No JVD or lymphadenopathy. Supple, nontender, no meningeal signs. CARDIOVASCULAR: Regular rate and rhythm without murmurs, gallops, or rubs. RESPIRATORY: Clear to auscultation. Breath sounds equal bilaterally. No wheezes , rales, or rhonchi. GASTROINTESTINAL: Abdomen soft, non-tender, nondistended. No hepato-splenomegaly , or palpable masses. No guarding. MUSCULOSKELETAL: Extremities without clubbing, cyanosis, or edema. No calf tenderness. NEUROLOGICAL: Awake and alert. Motor and sensory grossly within normal limits. Normal speech. Laboratory Laboratory Tests Test 01/22/18 13:30 White Blood Count 7.8 Red Blood Count 4.52 Hemoglobin 14.7 Hematocrit 40.7 Mean Corpuscular Volume 90.2 Mean Corpuscular Hemoglobin 32.5 Mean Corpuscular Hemoglobin Concent 36.1 Red Cell Distribution Width 13.3 Platelet Count 165 Mean Platelet Volume 8.0 Neutrophils (%) (Auto) 76.6 Lymphocytes (%) (Auto) 7.8 Monocytes (%) (Auto) 13.7 Eosinophils (%) (Auto) 1.3 Basophils (%) (Auto) 0.6 Neutrophils # (Auto) 6.0 Lymphocytes # (Auto) 0.6 Monocytes # (Auto) 1.1 Eosinophils # (Auto) 0.1 Basophils # (Auto) 0.0 CBC Comment AUTO DIFF Differential Comment AUTO DIFF CONFIRMED Prothrombin Time 11.0 Prothromb Time International Ratio 1.1 Activated Partial Thromboplast Time 31.9 Blood Urea Nitrogen 11 Creatinine 0.67 Random Glucose 102 Total Protein 7.6 Albumin 4.3 Calcium Level 8.6 Magnesium Level 1.6 Alkaline Phosphatase 73 Aspartate Amino Transf (AST/SGOT) 25 Alanine Aminotransferase (ALT/SGPT) 34 Total Bilirubin 1.9 Sodium Level 126 Potassium Level 4.2 Chloride Level 92 Carbon Dioxide Level 23.8 Anion Gap 10 Estimat Glomerular Filtration Rate 118 Total Creatine Kinase 124 Creatine Kinase MB 2.4 Troponin I 0.19 Result Diagram: 01/22/18 1330 01/22/18 1330 Imaging Last Impressions Chest X-Ray 01/22/18 1329 Signed Impressions: Service Date/Time: Monday, January 22, 2018 14:16 - CONCLUSION: Cardiomegaly. The patient is status post sternotomy. MD Ana Ponce VTE Risk Assessment Caprini VTE Risk Assessment: No/Low Risk (score <= 1) Caprini Risk Assessment Model Point Value = 1 Point Value = 2 Point Value = 3 Point Value = 5 Age 41-60 Minor surgery BMI > 25 kg/m2 Swollen legs Varicose veins or History of unexplained or recurrent spontaneous Oral contraceptives or hormone replacement Sepsis (< 1 month) Serious lung disease, including pneumonia (< 1 month) Abnormal pulmonary function Acute myocardial infarction Congestive heart failure (< 1 month) History of inflammatory bowel disease Medical patient at bed rest Age 61-74 Arthroscopic surgery Major open surgery (> 45 min) Laparoscopic surgery (> 45 min) Malignancy Confined to bed (> 72 hours) Immobilizing plaster cast Central venous access Age >= 75 History of VTE Family history of VTE Factor V Leiden Prothrombin [id number] Lupus anticoagulant Anticardiolipin antibodies Elevated serum homocysteine Heparin-induced thrombocytopenia Other congenital or acquired thrombophilia Stroke (< 1 month) Elective arthroplasty Hip, pelvis, or leg fracture Acute spinal cord injury (< 1 month) Prophylaxis Regimen Total Risk Factor Score Risk Level Prophylaxis Regimen 0-1 Low Early ambulation 2 Moderate Order ONE of the following: *Sequential Compression Device (SCD) *Heparin 5000 units SQ BID 3-4 Higher Order ONE of the following medications: *Heparin 5000 units SQ TID *Enoxaparin/Lovenox 40 mg SQ daily (WT < 150 kg, CrCl > 30 mL/min) *Enoxaparin/Lovenox 30 mg SQ daily (WT < 150 kg, CrCl > 10-29 mL/min) *Enoxaparin/Lovenox 30 mg SQ BID (WT < 150 kg, CrCl > 30 mL/min) AND/OR *Sequential Compression Device (SCD) 5 or more Highest Order ONE of the following medications: *Heparin 5000 units SQ TID (Preferred with Epidurals) *Enoxaparin/Lovenox 40 mg SQ daily (WT < 150 kg, CrCl > 30 mL/min) *Enoxaparin/Lovenox 30 mg SQ daily (WT < 150 kg, CrCl > 10-29 mL/min) *Enoxaparin/Lovenox 30 mg SQ BID (WT < 150 kg, CrCl > 30 mL/min) AND *Sequential Compression Device (SCD) Assessment and Plan Problem List: (1) CAD (coronary artery disease) ICD Code: I25.10 - Atherosclerotic heart disease of [place] coronary artery without angina pectoris (2) HTN (hypertension) ICD Code: I10 - Essential (primary) hypertension (3) Chest pressure ICD Code: R07.89 - Other chest pain Assessment and Plan In summary this is a 59-year-old male patient who presented to the ER for chest pain and elevated blood pressure on 01/19. He underwent a heart cath with percutaneous intervention with drug-eluting stent to the right coronary. He was discharged on 01/22 after being cleared by cardiology. He represented to the ER on the same day of discharge with chest pain. Chest pain Continue aspirin, Brilinta, statin Trend troponins, CKMB, an EKG Cardiology consulted, currently NPO, received one dose of lovenox Initial trop 0.19 Hypertension Continue carvedilol 25 mg twice daily Losartan 100 mg daily Hyperlipidemia Lipitor 80 mg at bedtime Code Status Full Discussed Condition With patient and Physician Certification 2 Midnight Certification Type: Admission for Inpatient Services Order for Inpatient Services The services are ordered in accordance with Medicare regulations or non- Medicare payer requirements, as applicable. In the case of services not specified as inpatient-only, they are appropriately provided as inpatient services in accordance with the 2-midnight benchmark. Estimated LOS (days): 2 days is the estimated time the patient will need to remain in the hospital, assuming treatment plan goals are met and no additional complications. Post-Hospital Plan: Not yet determined Problem Qualifiers (1) CAD (coronary artery disease): Qualified Codes: I25.110 - Atherosclerotic heart disease of [place] coronary artery with unstable angina pectoris (2) HTN (hypertension): Qualified Codes: I10 - Essential (primary) hypertension Shazia Damon MD Jan 22, 2018 15:22
[2018-01-22] MEDS ORDERED: ALPRAZolam 0.25 MG TAB PO PRN (15:30)
[2018-01-22] MEDS ORDERED: SODIUM CHLORIDE 0.9% FLUSH 10 ML FLUSH IV FLUSH PRN ×2 (15:30)
[2018-01-22] MEDS ORDERED: BISACODYL 10 MG SUPP RECTAL PRN (15:30)
[2018-01-22] MEDS ORDERED: MAGNESIUM HYDROXIDE SUSP 30 ML CUP PO PRN (15:30)
[2018-01-22] MEDS ORDERED: ONDANSETRON HCL 4 MG/2 ML VIAL IVP PRN (15:30)
[2018-01-22] MEDS ORDERED: ACETAMINOPHEN 325 MG TAB PO PRN ×2 (15:30)
[2018-01-22] MEDS ORDERED: MORPHINE SULFATE 2 MG/ML SYRINGE IV PUSH PRN ×3 (15:30)
[2018-01-22] MEDS ORDERED: LACTULOSE SYRUP 20 GM/30 ML CUP PO PRN (15:30)
[2018-01-22] MEDS ORDERED: METOCLOPRAMIDE HCL 10 MG/2 ML VIAL IV PUSH PRN (15:30)
[2018-01-22] MEDS ORDERED: NITROGLYCERIN 0.4 MG SL 25 TABS/BTL SL PRN (15:30)
[2018-01-22] MEDS ORDERED: NALOXONE HCL 0.4 MG/ML AMP IV PUSH PRN (15:30)
[2018-01-22] MEDS ORDERED: SENNOSIDES 8.6 MG TAB PO PRN (15:30)
[2018-01-22] MEDS ORDERED: PANTOPRAZOLE SOD 40 MG DELAYED RELEASE TAB PO ONE (15:30)
[2018-01-22] MEDS ORDERED: POLYETHYLENE GLYCOL 17 GM PKG PO ONE (15:45)
[2018-01-22] MEDS: hydrALAZINE HCL 10 MG TAB PO SCH (18:05)
[2018-01-22 20:15] LABS: TROPONIN I 0.17 NG/ML (0.02-0.05)
--- NOTE | 2018-01-22 20:18 | MB ---
cc: Shiv Fortune MD, Arthur W MD DATE: 01/22/2018 HISTORY OF PRESENT ILLNESS: is a very pleasant 67-year-old gentleman visiting from [place]. He is status post CABG. He was seen by Dr. Baker and underwent a heart catheterization on 01/21/2018 where a drug-eluting stent was placed in the mid right coronary artery. The stent dimensions were 4.0 x 15 and the stent was deployed to 18 atmospheres. Grafts were noted to be all patent. He represents with chest pain similar to the pain he had prior to the stent placement. He is still having intermittent chest pain. He otherwise denies any fevers, chills, cough, GI or bleeding, PND, orthopnea, syncope or dizziness. PAST MEDICAL HISTORY: Per history of present illness. Left heart catheterization on 01/21/2018. LV pressure is 141/66. Left main had a 75% distal stenosis, LAD 30% proximal stenosis occluded in the mid segment, proximal left circ had a 50% stenosis. Competitive flow is seen in the obtuse marginal vessel. Mid right coronary had a 90% calcified stenosis. SWENSON to the LAD was widely patent. Vein graft to the marginal widely patent. Vein graft to the right coronary widely patent. The patient was treated with a Resolute Etoile drug-eluting stent, 4.0 x 15, deployed at 18 atmospheres. He was treated with heparin and Cangrelor. Discharged on aspirin and Brilinta. Note, the patient did not have an echocardiogram during his last admission. The ejection fraction is not reported on the cath. PAST MEDICAL HISTORY: Includes arthritis, hyperlipidemia, sleep apnea, hypertension, seizure disorder x1 due to alcohol use, prostatectomy 2017, "right shoulder implant", rotator cuff surgery. SOCIAL HISTORY: Drinks alcohol a few times a week. Denies tobacco use. ALLERGIES: NONE. MEDICATIONS PRIOR TO ADMISSION 1. Brilinta 90 mg p.o. b.i.d. 2. Colace 100 mg daily. 3. Oxycodone 4. Aspirin 81 mg daily. 5. Vitamin D3. 6. Vitamin B. 7. Hydralazine 10 mg t.i.d. 8. Atorvastatin 80 mg at bedtime. 9. Coreg 25 mg b.i.d. 10. Irbesartan 300 mg daily. MEDICATIONS IN THE HOSPITAL: 1. Aspirin 81 mg daily. 2. Vitamin D3 2000 units daily. 3. Docusate 100 mg daily. 4. Vitamin B complex/ vitamin C. 5. Losartan 100 mg daily. 6. Pantoprazole 40 mg daily. 7. Lovenox 110 mg subcu q 12 hours. 8. Atorvastatin 80 mg hs. 9. Coreg 25 mg b.i.d. 10. Brilinta 90 mg b.i.d. 11. Hydralazine 10 mg t.i.d. PHYSICAL EXAMINATION: VITAL SIGNS: Blood pressure 178/87, pulse 67, respiratory rate 20, temperature 96.8, sats 97% on room air. GENERAL: He is alert and oriented x3, in no acute distress. NECK: Supple. No JVD. No bruit. CARDIOVASCULAR: S1, S2. No murmurs, rubs or gallops. LUNGS: Clear to auscultation bilaterally. ABDOMEN: Soft, nontender, nondistended with positive bowel sounds. EXTREMITIES: No lower extremity edema. CARDIOLOGY STUDIES: EKG shows normal sinus rhythm at 61 beats per minutes, possible lead misplacement between I and aVL and 2. There is actually a repeat EKG, which shows proper lead placement with a Q-wave in lead 3, which is narrow and nondiagnostic IMAGING STUDIES Chest x-ray: Cardiomegaly. The patient is status post sternotomy. LABORATORY DATA: White count 7.8, hemoglobin 14.7, hematocrit 40.7, platelet count 165. Sodium 126, potassium 4.2, chloride 92, creatinine 1.67, AST 25, total bilirubin is 1.9, ALT 34. Troponin is 0.19, albumin 4.3. INR 1.1. DIAGNOSES: 1. Aey-PD-trfusbacr myocardial infarction. 2. Hyponatremia. 3. Hyperbilirubinemia. DISCUSSION: I do think left heart catheterization is medically necessary due to the elevated troponin and symptoms similar to the pain he had prior to the stent placement. We will also add 2 inches of nitro paste as he is still very hypertensive and having intermittent chest pain and trend his troponins and CPK. MD CALIN Judge/ , 07:24 PM , 08:16 PM
[2018-01-22] MEDS: SODIUM CHLORIDE 0.9% FLUSH 10 ML FLUSH IV FLUSH SCH ×2 (21:00→21:27)
[2018-01-22] MEDS: ATORVASTATIN 80 MG TAB PO SCH (21:11)
[2018-01-22] MEDS: DOCUSATE SODIUM 50 MG/SENNA 8.6 MG TAB PO SCH (21:11)
[2018-01-22] MEDS: CARVEDILOL 12.5 MG TAB PO SCH (21:11)
[2018-01-22] MEDS: TICAGRELOR 90 MG TAB PO SCH (21:27)
[2018-01-23] VITALS (18 sets, daily range): BP systolic 137–172; BP diastolic 64–82; PULSE 59–76; RESP 16–20; TEMP 97.6–98.5; O2SAT 94–97
--- NOTE | 2018-01-23 00:02 | EKG ---
Date Performed: 01/22/2018 Time Performed: 19:57:56 PTAGE: 67 years EKG: Sinus rhythm WITH FIRST DEGREE AV BLOCK MODERATE INTRAVENTRICULAR CONDUCTION DELAY MODERATE ST DEPRESSION ABNORMA L ECG PREVIOUS TRACING : 01/22/2018 13.23 Compared to previous tracing, previous with arm lead revers al so unable to compare DOCTOR: Harley Castorena Interpretating Date/Time 01/23/2018 00:01:56
--- NOTE | 2018-01-23 00:19 | EKG ---
Date Performed: 01/22/2018 Time Performed: 13:23:00 PTAGE: 67 years EKG: Sinus rhythm WITH FIRST DEGREE AV BLOCK ARM LEADS REVERSED ABNORMAL ECG PREVIOUS TRACING : 01/20/2018 01.10 Unable to compare to previous due to arm lead reversal DOCTOR: Harley Castorena Interpretating Date/Time 01/23/2018 00:19:26
[2018-01-23 02:37] LABS: TROPONIN I 0.15 NG/ML (0.02-0.05)
[2018-01-23] MEDS ORDERED: ENOXAPARIN SODIUM 120 MG/0.8 ML SYRINGE SQ SCH (03:00)
[2018-01-23] MEDS: NITROGLYCERIN 2% OINT 1 GM PACKET TOPICAL SCH ×5 (03:54→23:57)
[2018-01-23 08:11] LABS: AUTOMATED NEUTROPHIL # 4.3 TH/MM3 (1.8-7.7); BASOPHIL # 0.1 TH/MM3 (0-0.2); EOSINOPHIL # 0.2 TH/MM3 (0-0.4); EOSINOPHIL % 3.3 % (0.0-4.0); HEMOGLOBIN 14.2 GM/DL (13.0-17.0); LYMPH % 10.3 % (9.0-44.0); LYMPHOCYTE # 0.6 TH/MM3 (1.0-4.8); MEAN CELL VOLUME 90.2 FL (80.0-100.0); MEAN CORPUSCULAR HEMOGLOBIN 32.8 PG (27.0-34.0); MEAN PLATELET VOLUME 8.4 FL (7.0-11.0); MONO % 16.7 % (0.0-8.0); NEUT % 68.7 % (16.0-70.0); PLATELET COUNT 167 TH/MM3 (150-450); RED BLOOD COUNT 4.32 MIL/MM3 (4.50-5.90); RED CELL DISTRIBUTION WIDTH 13.3 % (11.6-17.2); WHITE BLOOD COUNT 6.2 TH/MM3 (4.0-11.0)
[2018-01-23 08:12] LABS: MEAN CORPUSCULAR HGB CONC 36.3 % (32.0-36.0)
[2018-01-23 08:14] LABS: AST (GOT) 24 U/L (15-37); BICARBONATE 24.8 MEQ/L (21.0-32.0); BLOOD UREA NITROGEN 11 MG/DL (7-18); CALCIUM 8.9 MG/DL (8.5-10.1); CHLORIDE 94 MEQ/L (98-107); CREATININE 0.61 MG/DL (0.60-1.30); GLOMERULAR FILTRATION RATE 131 ML/MIN (>89); GLUCOSE,RANDOM 92 MG/DL (74-106); MAGNESIUM 1.7 MG/DL (1.5-2.5); SODIUM (NA) 128 MEQ/L (136-145)
[2018-01-23 08:23] LABS: ALKALINE PHOSPHATASE 66 U/L (45-117); ALT (GPT) 29 U/L (12-78); PHOSPHORUS 3.2 MG/DL (2.5-4.9); TOTAL BILIRUBIN ADULT 1.6 MG/DL (0.2-1.0)
[2018-01-23] MEDS: SODIUM CHLOR 0.9% 1000 ML INJ 1,000 ML IV SCH ×2 (08:38→21:20)
[2018-01-23] MEDS: SODIUM CHLORIDE 0.9% FLUSH 10 ML FLUSH IV FLUSH SCH ×5 (09:00→21:04)
[2018-01-23] MEDS ORDERED: ASPIRIN 81 MG CHEW TAB CHEW SCH (09:00)
--- NOTE | 2018-01-23 09:03 | HHI.PR ---
Subjective Remarks Follow up on patient with chest pain. Patient seen and examined. Patient denies any complaints of chest pain last night or this morning. He states he slept very well. He denies any shortness of breath. He states he was able to get up and walk several times through the night to the bathroom without any recurrence of chest pain or dyspnea. Denies any diaphoresis, dizziness or headache. He denies any nausea, vomiting or abdominal pain. He denies any bilateral lower extremity swelling. He denies any urinary difficulties or bowel complaints. Patient has a history of open heart surgery 2 years ago. Reports he is not followed up with his regular roll cleaner in [place] in quite some time and has gained 20 pounds recently. He reports his systolic blood pressure was 225 yesterday when he developed chest pain and dyspnea. Patient and his are in town for 2 more weeks visiting from [place]. Objective Vitals Vital Signs Date Time Temp Pulse Resp B/P (MAP) Pulse Ox O2 Delivery O2 Flow Rate FiO2 01/23/18 08:38 62 01/23/18 07:35 98.2 63 20 137/70 (92) 96 01/23/18 04:23 98.4 59 17 172/80 (110) 96 01/22/18 23:11 98.3 58 17 166/79 (108) 96 01/22/18 21:46 98 01/22/18 20:02 98.5 65 17 205/91 (129) 97 01/22/18 18:35 96.8 67 20 178/87 (117) 97 01/22/18 18:05 97.8 76 16 130/77 (94) 99 01/22/18 16:53 17 01/22/18 16:00 97.9 63 17 179/79 (112) 99 Room Air 01/22/18 14:34 97.8 60 18 142/65 (90) 98 Room Air 01/22/18 13:40 18 01/22/18 13:37 64 20 201/82 (121) 98 Room Air 199/91 (127) 01/22/18 13:32 98 Room Air 01/22/18 13:32 20 98 Room Air 01/22/18 13:24 64 18 201/82 (121) 98 Room Air 01/22/18 13:15 64 20 01/22/18 13:05 97.2 68 22 203/92 (129) 97 I/O 01/22/18 01/22/18 01/22/18 01/23/18 01/23/18 01/23/18 07:00 15:00 23:00 07:00 15:00 23:00 Intake Total 200 ml Balance 200 ml Intake Oral 200 ml Result Diagram: 01/23/18 0707 01/23/18 0707 Imaging Last Impressions Chest X-Ray 01/22/18 1329 Signed Impressions: Service Date/Time: Monday, January 22, 2018 14:16 - CONCLUSION: Cardiomegaly. The patient is status post sternotomy. Ernesto Romo MD Objective Remarks GENERAL: This is a well-nourished, well-developed overweight male patient, in no apparent distress. Awake and alert. Appears comfortable. at the bedside. SKIN: No rashes, ecchymoses or lesions. Cool and dry. Nitropaste noted right upper chest. HEAD: Atraumatic. Normocephalic. No temporal or scalp tenderness. EYES: Pupils equal round and reactive. Extraocular motions intact. ENT: Nose without bleeding or purulent drainage. Airway patent. NECK: Trachea midline. No lymphadenopathy. CARDIOVASCULAR: Regular rate and rhythm without murmurs, gallops, or rubs. RESPIRATORY: Clear to auscultation. Breath sounds equal bilaterally. No wheezes , rales, or rhonchi. GASTROINTESTINAL: Abdomen soft, non-tender, nondistended. No hepato-splenomegaly , or palpable masses. No guarding. MUSCULOSKELETAL: Extremities without clubbing, cyanosis, or edema. No calf tenderness. NEUROLOGICAL: Awake and alert. Motor and sensory grossly within normal limits. Nonfocal. Normal speech. PSYCHIATRIC: Appropriate mood and affect. Normal judgment and insight. Medications and IVs Current Medications Medications (Trade) Dose Ordered Sig/Bayron Route Start Time Stop Time Status Last Admin (NS Flush) 2 ml UNSCH PRN IVF 01/22/18 13:30 01/22/18 13:37 (Aspirin Chew) 81 mg DAILY CHEW 01/23/18 09:00 (Lipitor) 80 mg HS PO 01/22/18 21:00 01/22/18 21:11 (Coreg) 25 mg BID PO 01/22/18 21:00 01/22/18 21:11 (Vitamin D3) 2,000 units DAILY PO 01/23/18 09:00 (Colace) 100 mg DAILY PO 01/23/18 09:00 (Apresoline) 10 mg TID PO 01/22/18 18:00 01/22/18 18:05 (Brilinta) 90 mg BID PO 01/22/18 21:00 01/22/18 21:27 (Allbee C) 1 tab DAILY PO 01/23/18 09:00 (Cozaar) 100 mg DAILY PO 01/23/18 09:00 (NS Flush) 2 ml BID IV FLUSH 01/22/18 21:00 01/22/18 21:27 (NS Flush) 2 ml UNSCH PRN IV FLUSH 01/22/18 15:30 (Nitrostat Sl) 0.4 mg Q5M PRN SL 01/22/18 15:30 (Xanax) 0.25 mg Q8H PRN PO 01/22/18 15:30 01/22/18 21:11 (NS Flush) 2 ml UNSCH PRN IV FLUSH 01/22/18 15:30 (NS Flush) 2 ml BID IV FLUSH 01/22/18 21:00 (Tylenol) 650 mg Q4H PRN PO 01/22/18 15:30 (Zofran Inj) 4 mg Q6H PRN IVP 01/22/18 15:30 (Reglan Inj) 5 mg Q6H PRN IV PUSH 01/22/18 15:30 (Tylenol) 650 mg Q6H PRN PO 01/22/18 15:30 01/22/18 15:53 (Roxicodone) 10 mg Q4H PRN PO 01/22/18 15:30 01/22/18 21:11 (Morphine Inj) 2 mg Q3H PRN IV PUSH 01/22/18 15:30 (Morphine Inj) 4 mg Q3H PRN IV PUSH 01/22/18 15:30 (Morphine Inj) 4 mg Q3H PRN IV PUSH 01/22/18 15:30 (Roxicodone) 5 mg Q4H PRN PO 01/22/18 15:30 (Narcan Inj) 0.4 mg UNSCH PRN IV PUSH 01/22/18 15:30 (Elvie-Colace) 1 tab BID PO 01/22/18 21:00 01/22/18 21:11 (Milk Of Magnesia Liq) 30 ml Q12H PRN PO 01/22/18 15:30 (Senokot) 17.2 mg Q12H PRN PO 01/22/18 15:30 (Dulcolax Supp) 10 mg DAILY PRN RECTAL 01/22/18 15:30 (Lactulose Liq) 30 ml DAILY PRN PO 01/22/18 15:30 01/22/18 21:11 (Lovenox Inj) 110 mg Q12H SQ 01/23/18 03:00 01/23/18 03:54 (Protonix) 40 mg DAILY PO 01/23/18 09:00 (Nitroglycerin 2% Oint) 2 inch Q6HR TOPICAL 01/23/18 00:00 01/23/18 06:00 Sodium Chloride 1,000 ml @ 75 mls/hr [id number] IV 01/23/18 08:00 01/23/18 08:38 A/P Problem List: (1) CAD (coronary artery disease) ICD Code: I25.10 - Atherosclerotic heart disease of [place] coronary artery without angina pectoris (2) HTN (hypertension) ICD Code: I10 - Essential (primary) hypertension (3) Chest pressure ICD Code: R07.89 - Other chest pain Assessment and Plan In summary this is a 59-year-old male patient who presented to the ER for chest pain and elevated blood pressure on 01/19. He underwent a heart cath with percutaneous intervention with drug-eluting stent to the right coronary. He was discharged on 01/22 after being cleared by cardiology. He represented to the ER on the same day of discharge with chest pain. Chest pain s/p PCI showing 2/3 bypass grafts patent, successful placement of INOCENCIO to RCA 01/21 Elevated troponins, 0.19, 0.17, 0.15 NSTEMI Hx of CAD, CABG x 3 2 years ago Cardiology following, appreciate assistance -Plan for left heart cath today -continue patient NPO. Add IVF for hydration. -Continue on therapeutic Lovenox -continue nitropaste -continue aspirin, Brilinta, statin -Supplemental oxygen as needed -replete low normal mag to 2.0 Hypertension, uncontrolled Patient reports systolic BP of 225 prior to coming into the ED BP improved, 137/70 this am -Continue carvedilol 25 mg twice daily -continue on Losartan 100 mg daily -Continue on hydralazine 10 mg 3 times daily -Continue to monitor BP and adjust treatment accordingly Hyponatremia, asymptomatic -IVF -monitor sodium level Hyperlipidemia -continue on Lipitor 80 mg at bedtime GERD -continue on Protonix DVT prophylaxis -Patient is on therapeutic Lovenox Discharge Planning Not ready for discharge. Left heart catheterization today. Discharge pending clinical course and Cardiology clearance. Problem Qualifiers (1) CAD (coronary artery disease): Qualified Codes: I25.110 - Atherosclerotic heart disease of [place] coronary artery with unstable angina pectoris (2) HTN (hypertension): Qualified Codes: I10 - Essential (primary) hypertension Quyen Nuñez Jan 23, 2018 09:03
[2018-01-23] MEDS ORDERED: MAGNESIUM OXIDE 400 MG TAB PO ONE (09:15)
[2018-01-23] MEDS: VITAMIN B COMPLEX/VIT C TAB PO SCH (09:27)
[2018-01-23] MEDS: TICAGRELOR 90 MG TAB PO SCH ×2 (09:28→21:04)
[2018-01-23] MEDS: hydrALAZINE HCL 10 MG TAB PO SCH ×3 (09:29→17:24)
[2018-01-23] MEDS: CHOLECALCIFEROL (VIT D3) 1000 UNIT TAB PO SCH (09:29)
[2018-01-23] MEDS: LOSARTAN 50 MG TAB PO SCH (09:29)
[2018-01-23] MEDS: CARVEDILOL 12.5 MG TAB PO SCH ×2 (09:29→21:04)
[2018-01-23] MEDS: PANTOPRAZOLE SOD 40 MG DELAYED RELEASE TAB PO SCH (09:29)
[2018-01-23] MEDS: DOCUSATE SODIUM 100 MG CAP PO SCH (09:30)
[2018-01-23] MEDS: DOCUSATE SODIUM 50 MG/SENNA 8.6 MG TAB PO SCH ×2 (09:30→21:00)
[2018-01-23] MEDS ORDERED: HEPARIN-NS/PF FLUSH BAG 2,000 ML IV FLUSH ONE (09:51)
[2018-01-23] MEDS ORDERED: MIDAZOLAM HCL 2 MG/2 ML VIAL ONE (09:51)
[2018-01-23] MEDS ORDERED: HEPARIN SODIUM - IV 10,000 UNITS/10 ML VIAL ONE (09:52)
[2018-01-23] MEDS ORDERED: TIROFIBAN INFUSION INJ 250 ML IV ONE (11:04)
[2018-01-23] MEDS ORDERED: TIROFIBAN INFUSION INJ 250 ML IV SCH (11:16)
[2018-01-23] MEDS ORDERED: BACITRACIN OINT 0.9 GM PKT TOP ONE (11:30)
[2018-01-23] MEDS ORDERED: amLODIPine BESYLATE 5 MG TAB PO ONE (11:30)
[2018-01-23] MEDS ORDERED: SODIUM CHLORIDE 0.9% FLUSH 10 ML FLUSH IV FLUSH PRN (11:30)
[2018-01-23] MEDS ORDERED: MISC INFORMATION XX ONE (11:30)
--- NOTE | 2018-01-23 11:32 | CATHPROC ---
[employer] HIS Report Study Information Study Number Admission Scheduled Start Study Start [id number] Jan 22 2018 3:10PM 01/23/2018 Jan 23 2018 10:19AM [place] [facility] Cardiac Catheterization Admit Source Facility Department Emergency department [facility] - Director Of Integrated Marketing Physician and Clinical Staff Initial Shiv Royal Livestock Yard Attendant Joan Ingram RN Livestock Yard Attendant Za, Aretha Recorder Wandy Haines,DIRECTOR OF STUDENT AID TECH2 Scrub Qian Chou,RT(R) (BS) Procedures Performed Procedure Location (Site) Vessel Name Coronary Angiograms LCA Left Coronary Coronary Angiograms RCA Right Coronary Coronary Angiograms SWENSON-LAD Left Coronary Coronary Angiograms SVG-OM CIRC L Heart Cath LV Gram-hand inj. LV LV Ventricle Stent RCA Dist Right Coronary Wire insertion Fem Art (right) Femoral Art Equipment Time Friction Paint Machine Tender Description Size Mfg Part Number Used/Scraped [id number] 10:54 [employer] CRITICAL CARE WIRE, ASAHI PROWATER 180CM 180CM Used *[id number] TRANSDUCER, TRUWAVE [id number] 10:24 Tr[employer]ight HAMMOND * Used W/STOCKCOCK *[id number] *[id number] [id number] *[id number] [id number] *[id number] 10:24 [email or web address] INDUSTRIES PACK, CCL CUSTOM * Used *[id number] 10:24 [email or web address] PACER PEN, SKIN DUAL W/ RULER * Used *[id number] 10:54 MED[employer]ONIC STENT, 2.5 8 INTEGRITY 2.5 8 Used *[id number] 11:04 [employer] MEDICAL 30 BELA INDEFLATOR Used *[id number] 10:53 [employer] MEDICAL SHEATH, FR6.5 PRELUDE 11CM FR 6.5 038ACT Used *[id number] 10:24 [employer] MEDICAL WIRE, 3MMJ .035 180CM 180CM Used *[id number] 10:24 NAMIC MANIFOLD, 4 PORT * Used *[id number] 10:24 [employer]COMED OMNIPAQUE, 350 MG, 150ML 150ML [id number] Used [id number] 10:24 [employer] MEDICAL BLANKET,WARM AIR CCL * Used *[id number] 10:24 TERUMO MEDICAL SHEATH, FR4 TERUMO (10CM) FR 4 Used *[id number] Equipment Model, Serial, Lot Number and Expiration Data Description Model Number Serial Number Lot Number Expiration Date STENT, 2.5 8 INTEGRITY [id number] 03-02-2019 History: Current Medications Medication Dosage/Unit Route Frequency Last Date/Time Taken COZAAR Statins (any) ASA HYDRALAZINE CARVEDILOL BRILINTA VITAMIN D History: Allergies Allergy Reaction No Known Allergies History: Risk Factors Family History of Hypertension Dyslipidemia Previous UT Previous Heart Failure Premature CAD Yes Yes Yes No No Prior Valve Prior PCI Prior PCIDate Prior CABG Prior CABGDate Surgery No Yes 01/21/2018 Yes 01/26/2016 Cerebrovascular Peripheral Artery Chronic Lung On Dialysis Diabetes Disease Disease Disease No No No No No History: Symptoms/Diagnosis Selection Items Chest pain SOB History: Stress Tests Stress or Imaging Studies Performed Yes Standard Exercise Stress Test No Stress Echo No Stress Test SPECT Stress Test SPECT Result Stress Test SPECT Ischemia Risk/Extent Yes Positive Intermediate Stress Test CMR No Cardiac CTA Coronary Calcium Score No No History: Other Disease Selection Items CAD Gerd HTN History: Other Current Smoker Method Quit Packs a Day Years Used Pack Years No Cigarettes 30 Years Ago 1 12 12 Labs Hgb (g/dl) Hct (%) RBC (MIL/MM3) WBC (l/cumm) Platelets (thousands) 11.60-17.00 35.00-51.00 4.00-5.90 4.00-11.00 150.00-450.00 14.2 39 4.3 6.2 167 Glucose (mg/dl) BUN (mg/dl) Creatinine (mg/dl) BUN:Creatinine (1:x) 74.00-106.00 7.00-18.00 0.50-1.30 10.00-20.00 92 11 0.6 18.3 Na (meq/l) K (meq/l) Cl (meq/l) CO2 (mmol/L) Ca (mg/dl) 136.00-145.00 3.50-5.10 98.00-107.00 21.00-32.00 8.50-10.10 128 4 94 24.8 8.9 PT (sec) PTT (sec) INR (PTT:PT) 9.80-11.60 24.30-30.10 0.90-1.10 11 31.9 1 Troponin I (ng/ml) CPK (u/l) CPK-MB (ng/ML) 0.02-0.05 26.00-308.00 0.50-3.60 0.15 100 20.0 Medication Medication Total Dose (Bolus/Oral) Medication Total Dosage/Unit 1% XYLOCAINE 20 mL ANGIOMAX BOLUS 55.5 mL FENTANYL 12.5 mcg HEPARIN 6700 units VERSED 2 mg Medications (Bolus/Oral) Medication Time Given Dosage/Unit Administered By Reason VERSED 01/23/2018 10:30:46 AM 2 mg Joan Ingram 2 mg VERSED given in lab by Joan Ingram RN in Right Forearm via Peripheral IV. Ordered by Shiv Hernandez. FENTANYL 01/23/2018 10:31:18 AM 12.5 mcg Joan Ingram 12.5 mcg FENTANYL given in lab by Joan Ingram RN in Right Forearm via Peripheral IV. Ordered by Shiv Duran. 1% XYLOCAINE 01/23/2018 10:35:27 AM 20 mL Shiv Fortune 20 mL 1% XYLOCAINE given in lab by Shiv Fortune in Right Groin via Subcutaneous. HEPARIN 01/23/2018 10:56:36 AM 6700 units Joan Ingram 6700 units HEPARIN given in lab by Joan Ingram RN in Right Forearm via Peripheral IV. Ordered by Shiv Fortune. ANGIOMAX BOLUS 01/23/2018 11:06:58 AM 55.5 mL Joan Ingram 55.5 mL ANGIOMAX BOLUS given in lab by Joan Ingram RN in Right Forearm via Peripheral IV. Ordered by Shiv Fortune. Medication (Drip) Medication Time Given Dosage/Unit Concentration/Unit Diluent (ml) Solution AGGRASTAT DRIP 01/23/2018 11:11:22 AM 0.15 mcg/kg/min 12.5 mg 250 NaCl .9 0.15 mcg/kg/min AGGRASTAT DRIP given in lab by Joan Ingram RN in Right Forearm via Peripheral IV. Pump/Drip Flow = 19.98 ml/hr using NaCl .9 with a concentration of 12.5 mg in 250 ml. Ordered by Shiv Fortune. IV Solutions 01/23/2018 10:24:02 AM 0 mL (IV) 500 NaCl .9 Patient arrived on IV Solutions in Right Forearm via Peripheral IV. Pump/Drip Flow = 20 ml/hr using N aCl .9. Initial Case Assessment Cardiovascular HR Rhythm NIBP Chest Pain 73 sr 184/88 0 Circulatory - Right Pulses Dorsalis Pedis Femoral 2 3 Scale (0,1,2,3,4,d) Circulatory - Left Pulses Dorsalis Pedis Femoral 2 3 Scale (0,1,2,3,4,d) Neurological State Oriented to time-place- Alert Moves all extremities person Respiration - General Respiration Rate SpO2 (%) (B/min) 19 97 Final Case Assessment Cardiovascular HR Rhythm NIBP Chest Pain 89 sr 180/88 0 Circulatory - Right Pulses Dorsalis Pedis Femoral 3 2 Scale (0,1,2,3,4,d) Circulatory - Left Pulses Dorsalis Pedis Femoral 3 2 Scale (0,1,2,3,4,d) Neurological State Oriented to time-place- Alert Moves all extremities person Respiration - General Respiration Rate SpO2 (%) (B/min) 19 96 Chronological Log Time Study Chronological Log 10:15:50 Patient arrived via Bed. 10:15:54 Patient Name, D.O.B, / Armband Verified By R.N. 10:19:00 Pre-op and post- op instructions given; patient acknowledges understanding of instructions. 10:19:02 Verbal Stimulation=2 Physical Stimulation=2 Airway=2 Respiration=2 TOTAL=8. (0=absent, 1=li mited, 2=present) 10:19:03 Presedation assessment performed by Director Of Integrated Marketing RN. 10:19:04 Patient has been NPO for More than 6Hrs. 10:19:05 Skin Breakdown-none Vitals capture started with the following parameters, Patient=Adult, Interval=5 min, Initial Pr bfberu=385 mmHg, 10:19:57 Deflation Rate=5 mmHg, Cuff placed on Right Ankle 10:21:13 HR=67 bpm, XDXU=567/88 mmhg, SpO2=97.0 %, Resp=20 B/min 10:24:00 Mauro Prominences Protected 10:24:01 A # 20 IV was noted in the Forearm (right). Grade = patent 10:24:02 Patient arrived on IV Solutions in Right Forearm via Peripheral IV. Pump/Drip Flow = 20 ml/ hr using NaCl .9. 10:24:04 History and physical on the chart or being dictated. Assessment: Initial Case, HR=73 BPM, Rhythm=sr, KOSM=499/88 mmhg, Chest Pain=0 Right Pulses: Asim Ped=2, Femoral=3 10:24:05 Left Pulses: Asim Ped=2, Femoral=3 Neurological: State=Alert, Ox3, HURLEY Respiration: Resp=19 B/min, SpO2=97 % 10:25:22 Bilateral groins prepped with 2% chlorhexidine, and draped after a 3 minute waiting time. 10:25:43 HR=70 bpm, LMPQ=806/94 mmhg, SpO2=98.0 %, Resp=12 B/min 10:27:05 Reference ECG taken 10:30:00 MD paged 10:30:01 MD responded 10:30:44 HR=68 bpm, RICZ=625/91 mmhg, SpO2=98.0 %, Resp=17 B/min 10:30:46 2 mg VERSED given in lab by Joan Ingram, RN in Right Forearm via Peripheral IV. Ordered by Shiv Fortune. 12.5 mcg FENTANYL given in lab by Joan Ingram, PUSHPA in Right Forearm via Peripheral IV. Ordere d by Tong, 10:31:18 Shiv. 10:32:06 MD arrived. 10:32:15 Pressure channel 1 zeroed. Time Out. Correct patient, correct procedure, correct physician, power injector not loaded/used with contrast with 10:34:45 surgical team present. Time Out Concurred by MD and individual staff in procedure. 10:35:26 Case Start 10:35:27 20 mL 1% XYLOCAINE given in lab by Shiv Fortune in Right Groin via Subcutaneous. 10:35:47 HR=70 bpm, LDQQ=821/85 mmhg, SpO2=95.0 %, Resp=16 B/min 10:36:59 Access site was Right Femoral Artery. 10:37:05 A SHEATH, FR4 TERUMO (10CM) FR 4 was advanced into the Fem Art (right) using the Percutaneo us technique. A JR 4.0 INFINITI CATHETER FR 4 was advanced over a wire. OMNIPAQUE, 350 MG, 150ML 150ML was us ed for 10:38:10 injections. Recorded Pressure: LV, HR=67, Condition=Condition 1 10:38:48 (Left Ventricle) LV 172/0/17 10:38:58 The LV was manually injected with 10 cc's and visualized. OMNIPAQUE, 350 MG, 150ML 150ML us ed. Recorded Pressure: LV, Ao, HR=68, Condition=Condition 1 10:39:05 (Left Ventricle) LV 168/1/14, (Aorta) Ao 164/74/109 10:40:40 HR=64 bpm, FIDX=183/85 mmhg, SpO2=96.0 %, Resp=14 B/min 10:40:52 The RCA was injected and visualized at various angles. OMNIPAQUE, 350 MG, 150ML 150ML used . 10:44:08 The SVG-OM was injected and visualized at various angles. OMNIPAQUE, 350 MG, 150ML 150ML us ed. 10:46:20 HR=77 bpm, QXOW=682/79 mmhg, SpO2=94.0 %, Resp=14 B/min 10:48:21 The SWENSON-LAD was injected and visualized at various angles. OMNIPAQUE, 350 MG, 150ML 150ML used. 10:49:28 Catheter was removed A JL 4.0 INFINITI CATHETER FR 4 was advanced over a wire. OMNIPAQUE, 350 MG, 150ML 150ML was us ed for 10:49:31 injections. 10:50:03 The LCA was injected and visualized at various angles. OMNIPAQUE, 350 MG, 150ML 150ML used . 10:50:38 HR=70 bpm, EAJT=126/84 mmhg, SpO2=95.0 %, Resp=13 B/min 10:52:55 Catheter was removed A SHEATH, FR6.5 PRELUDE 11CM FR 6.5 was exchanged in the Fem Art (right). This was necessary in order to 10:53:03 accomodate a larger catheter. A 3DRC GUIDE CATHETER FR 6 was advanced over a wire. OMNIPAQUE, 350 MG, 150ML 150ML was used fo r 10:54:10 injections. 10:55:41 HR=71 bpm, CJLZ=172/86 mmhg, SpO2=97.0 %, Resp=12 B/min 6700 units HEPARIN given in lab by Joan Ingram, RN in Right Forearm via Peripheral IV. Order ed by Tong, 10:56:36 Shiv. 10:58:29 A WIRE, [place] PROWATER 180CM 180CM was inserted via Fem Art (right). 11:00:46 HR=73 bpm, KPDC=166/74 mmhg, SpO2=96.0 %, Resp=19 B/min An STENT, 2.5 8 INTEGRITY 2.5 8 Bare Metal Stent was inserted through a 3DRC GUIDE CATHETER FR 6 over a WIRE, 11:02:04 [facility] PROWATER 180CM 180CM. A STENT, 2.5 8 INTEGRITY 2.5 8 was deployed using a 30 BELA INDEFLATOR at 10 atmospheres for 15 seconds in the 11:03:08 RCA Dist. 11:03:40 Delivery device removed 11::42 Catheter was removed 11::58 Wire removed 11:04:15 Activated Clotting Time Drawn 11:05:31 Case End 11:05:43 HR=81 bpm, DDNS=730/79 mmhg, SpO2=97.0 %, Resp=14 B/min 55.5 mL ANGIOMAX BOLUS given in lab by Joan Ingram, PUSHPA in Right Forearm via Peripheral IV. O rdered by 11:06:58 Shiv Fortune. 11:09:17 ACT (Normal Range 90-180) = 290 11:09:53 In the Fem Art (right) the SHEATH, FR6.5 PRELUDE 11CM FR 6.[address] by Qian Miramontes RT(R) (BS). 11:10:04 Sterile dressing applied to site 11:10:07 No case complications noted. 11:10:08 Cine recording checked. 11:10:10 Bedside Report will be given. 11:10:12 Implantable Device card placed in patient's chart. 11:10:21 A Left Heart Cath was performed. 11:10:42 HR=77 bpm, IEJJ=742/88 mmhg, SpO2=96.0 %, Resp=20 B/min, Pain=0, Lamar=2 Assessment: Final Case, HR=89 BPM, Rhythm=sr, DUVN=323/88 mmhg, Chest Pain=0 Right Pulses: Asim Ped=3, Femoral=2 11:10:58 Left Pulses: Asim Ped=3, Femoral=2 Neurological: State=Alert, Ox3, HURLEY Respiration: Resp=19 B/min, SpO2=96 % 0.15 mcg/kg/min AGGRASTAT DRIP given in lab by Joan Ingram, PUSHPA in Right Forearm via Periphe ral IV. Pump/Drip 11:11:22 Flow = 19.98 ml/hr using NaCl .9 with a concentration of 12.5 mg in 250 ml. Ordered by Shiv Hernandez. 11:15:39 Vitals capture stopped. 11:16:51 Patient moved to BED 11:18:29 [facility] End Study - Contrast Media Used In Study Contrast Total Opened (mL) Total Used (mL) Total Wasted (mL) Omnipaque 130 130 0 End Study - Maximum Contrast Load Max Contrast Load (mL) 925.0 End Study - Radiation Exposure Fluoro Time (minutes) 9.6 End Study - Patient Disposition Complications Transferred To Interventional Outcome No Critical Care Bed successful
[2018-01-23 13:17] LABS: HEMOGLOBIN A1C 4.8 % (4.3-6.0)
--- NOTE | 2018-01-23 13:28 | MA ---
cc: Shiv Fortune MD DATE: 01/23/2018 PROCEDURE PERFORMED: Left heart catheterization, left ventriculography, coronary angiography, saphenous vein angiography, SWENSON angiography and direct bare-metal stent of the right posterolateral artery. INDICATIONS FOR PROCEDURE: Non-STEMI coronary artery disease, status post coronary artery bypass grafting. PROCEDURE: The patient was brought to the cardiac catheterization laboratory, prepped and draped in the usual sterile fashion. 10 mL of 1% lidocaine was used to locally anesthetize the right common femoral artery. A 4-Bolivian sheath was placed on the right common femoral artery. 4-Bolivian JR4 and JL4 catheters were used to perform left and right coronary angiography, left ventriculography, saphenous vein angiography and SWENSON angiography. FINDINGS: The right coronary artery has a posterior takeoff. The stent in the proximal midsegment is widely patent. There is an area of haziness and a moderate stenosis in the distal segment. I took multiple views. The haziness was most apparent when imaging was done over the lung field and also when the vessel appeared to be foreshortened. In the PASHTO 51 caudal 11-degree view, there did not appear to be significant opacification and in this view the artery does not appear to be foreshortened. There does appear to be some subtle tapering of the vessel up to about 30-40% angiographically. Reference vessel diameter at that segment is about 2.5 mm, reference vessel diameter in the mid is 4.25 mm and reference vessel diameter of the proximal is 5 mm. The right PDA has no significant disease angiographically. The right posterolateral artery has a proximal mid 90% stenosis. The vein graft to the obtuse marginal vessel was widely patent. There is retrograde filling of the OM to the proximal left circumflex where competitive flow is seen, then antegrade filling of the AV groove left circumflex filling 3 small posterolateral arteries, which had no significant disease angiographically. The SWENSON to the LAD is widely patent. [place] LAD is a relatively small vessel, reference vessel diameter of probably ____ mm with mild diffuse disease beyond the graft insertion site up to 20-30% angiographically. At the graft insertion site, there appears to be a slightly more focal stenosis of 40-50%. The LAD is transapical. Otherwise, no significant obstructive disease. There is a small diagonal vessel. Reference vessel diameter 1.5 mm with an ostial 40-50% stenosis. The left main coronary artery has a distal 50% stenosis. The LAD is occluded in the proximal segment. There is a ramus intermedius vessel which is a medium sized vessel, reference vessel diameter of 2.75 mm with an ostial 40% stenosis, mid 30% stenosis. First obtuse marginal vessel is small with no significant disease angiographically. Second obtuse marginal vessel is a medium to large size vessel with competitive flow seen in the midsegment. The patient received 110 mg of subcutaneous Lovenox at 3:25 a.m. At the time of the imaging, it was 11 a.m., making it roughly 8 hours since the last Lovenox injection. Therefore, given the margin of therapeutic effect of the Lovenox, I proceeded with giving the patient 60 units per kilo of heparin. ACT was 290. A 6-Bolivian sheath was exchanged for the 4-Bolivian sheath. A 6-Bolivian 3DRC guide and a 0.014 Prowater guidewire were used to cross the mid right posterolateral artery stenosis. The lesion was directly stented with a 258 Integrity stent, 1 inflation at 10 atmospheres for 20 seconds. Stenosis went from 90% to 0% with LAURA-3 flow. CONCLUSION: 1. Non-STEMI, culprit 90% stenosis in the proximal mid right posterolateral artery as detailed above. 2. Widely patent stent in the mid right coronary artery as detailed above. 3. Two of 3 grafts patent. 4. Severe 3-vessel coronary artery disease in right dominant system as detailed above. 5. Normal left ventricular systolic function with ejection fraction 60%. LV pressure is 170/4-9. RECOMMENDATIONS: Continue Brilinta 90 mg b.i.d., aspirin 162 mg daily. We will treat lipids per NCEP guidelines. Also, further adjustment of blood pressure meds to avoid hypertension. I have strongly cautioned the patient to avoid alcohol, decongestants, sympathomimetics, processed food, particularly soup and processed meat, caffeine. He understands. MD CALIN Judge/TL/ , 11:34 AM , 12:49 PM
--- NOTE | 2018-01-23 14:25 | EKG ---
Date Performed: 01/23/2018 Time Performed: 01:54:22 PTAGE: 67 years EKG: SINUS BRADYCARDIA WITH FIRST DEGREE AV BLOCK POSSIBLE LEFT ATRIAL ENLARGEMENT NON-SPECIFIC ST/T WAVE CHANGES ABNORMAL ECG PREVIOUS TRACING : 01/22/2018 19.57 Since the previous tracing, no significant change noted DOCTOR: Harley Castorena Interpretating Date/Time 01/23/2018 14:24:06
[2018-01-23] MEDS ORDERED: TOLVAPTAN 30 MG TAB PO ONE (16:30)
[2018-01-23] MEDS ORDERED: TOLVAPTAN 15 MG TAB PO ONE (17:00)
[2018-01-23] MEDS: ATORVASTATIN 80 MG TAB PO SCH (21:04)
[2018-01-24] VITALS (16 sets, daily range): BP systolic 130–200; BP diastolic 64–94; PULSE 64–92; RESP 18–20; TEMP 98.1–98.5; O2SAT 92–96
[2018-01-24 04:20] LABS: BASOPHIL # 0.1 TH/MM3 (0-0.2); BASOPHIL % 0.9 % (0.0-2.0); EOSINOPHIL # 0.1 TH/MM3 (0-0.4); HEMATOCRIT 39.8 % (39.0-51.0); HEMOGLOBIN 14.3 GM/DL (13.0-17.0); LYMPH % 9.2 % (9.0-44.0); LYMPHOCYTE # 0.6 TH/MM3 (1.0-4.8); MEAN CELL VOLUME 90.6 FL (80.0-100.0); MEAN CORPUSCULAR HEMOGLOBIN 32.5 PG (27.0-34.0); MEAN CORPUSCULAR HGB CONC 35.9 % (32.0-36.0); MEAN PLATELET VOLUME 8.5 FL (7.0-11.0); MONO % 15.1 % (0.0-8.0); NEUT % 72.8 % (16.0-70.0); PLATELET COUNT 182 TH/MM3 (150-450); RED BLOOD COUNT 4.39 MIL/MM3 (4.50-5.90); RED CELL DISTRIBUTION WIDTH 13.1 % (11.6-17.2); WHITE BLOOD COUNT 6.8 TH/MM3 (4.0-11.0)
[2018-01-24 04:22] LABS: BICARBONATE 24.3 MEQ/L (21.0-32.0); CALCIUM 8.8 MG/DL (8.5-10.1); CREATININE 0.92 MG/DL (0.60-1.30)
[2018-01-24 04:25] LABS: CHOLESTEROL/ HDL RATIO 2.04 RATIO; HDL CHOLESTEROL 54.3 MG/DL (40.0-60.0)
[2018-01-24] MEDS: NITROGLYCERIN 2% OINT 1 GM PACKET TOPICAL SCH ×2 (05:27→12:06)
[2018-01-24] MEDS: SODIUM CHLOR 0.9% 1000 ML INJ 1,000 ML IV SCH (07:39)
[2018-01-24] MEDS: SODIUM CHLORIDE 0.9% FLUSH 10 ML FLUSH IV FLUSH SCH ×3 (07:40→09:00)
[2018-01-24] MEDS: hydrALAZINE HCL 10 MG TAB PO SCH ×2 (07:42→12:06)
[2018-01-24] MEDS: TICAGRELOR 90 MG TAB PO SCH (07:42)
[2018-01-24] MEDS: VITAMIN B COMPLEX/VIT C TAB PO SCH (07:42)
[2018-01-24] MEDS: CHOLECALCIFEROL (VIT D3) 1000 UNIT TAB PO SCH (07:43)
[2018-01-24] MEDS: CARVEDILOL 12.5 MG TAB PO SCH (07:43)
[2018-01-24] MEDS: PANTOPRAZOLE SOD 40 MG DELAYED RELEASE TAB PO SCH (07:43)
[2018-01-24] MEDS: DOCUSATE SODIUM 100 MG CAP PO SCH (07:44)
[2018-01-24] MEDS: DOCUSATE SODIUM 50 MG/SENNA 8.6 MG TAB PO SCH (07:44)
[2018-01-24] MEDS: LOSARTAN 50 MG TAB PO SCH (07:46)
--- NOTE | 2018-01-24 08:34 | MB ---
cc: Jeancarlos Ding MD DATE: 01/23/2018 REASON FOR CONSULTATION: Hyponatremia management. HISTORY OF PRESENT ILLNESS: This is a 67-year-old male who is on vacation from [place]. He presented to the ER 4 days ago with symptoms of chest pain. At that time, stress test was positive. The patient has a previous CABG. The patient had a cardiac stent placed on 01/21, with a drug-eluting stent placed to the right coronary artery. The patient initially did well post-procedure, however, on the date of discharge the following day, he later had chest pains again. The patient was readmitted to the hospital yesterday and had a repeat cardiac catheterization, where the patient had findings of a proximal mid right posterolateral artery lesion. He had another stent placed earlier today. At this point, he reports his chest pain symptoms have resolved and the procedure otherwise went well. Nephrology was consulted for hyponatremia. The patient presented with a serum sodium of 126 on admission yesterday, which slightly improved to a level of 128. Apparently hyponatremia has been prevalent in the past for this patient. He reports in [place], he has been followed for hyponatremia for over 12 years, however, he is uncertain for the etiology of this. Apparently in the past when he had a CABG surgery, his serum sodium had dropped in the 100s, however, it subsequently improved after that. No records are available from his home in [place] at this point. Otherwise, the patient is resting in bed comfortably. He reports no acute complaints and otherwise feels well. He is doing well post-procedure and plans for apparent possible discharge tomorrow. Nephrology was consulted for evaluation of hyponatremia. REVIEW OF SYSTEMS: The patient had initial chest pain, which he reports have improved. No nausea, no vomiting, no diarrhea, no chest pains, no shortness of breath, no dizziness, no loss of consciousness. Otherwise, review of systems negative. PAST MEDICAL HISTORY: Includes CAD, status post stent placement and previous CABG. Also, prostate removal, right shoulder implant. MEDICATIONS AT HOME: Included Brilinta, Colace, oxycodone, aspirin, vitamin D,vitamin B, hydralazine, atorvastatin, Coreg and irbesartan. ALLERGIES: NO KNOWN DRUG ALLERGIES. SOCIAL HISTORY: The patient quit tobacco use 30 years ago. No alcohol use. PHYSICAL EXAMINATION: VITAL SIGNS: At time of evaluation, temperature 97.6, pulse 68, respiration rate 16, blood pressure 160/88, pulse oximetry 94%. GENERAL: Awake, alert, oriented, in no apparent distress. NECK: Soft, supple. No lymphadenopathy. CARDIAC: Regular rate and rhythm. PULMONARY: Clear to auscultation. ABDOMEN: Soft, nontender, nondistended. EXTREMITIES: No edema. LABORATORY FINDINGS: White count 6.2, hemoglobin 14.2, hematocrit 39, platelet count of 167. Sodium 128, potassium 4, chloride 94, bicarbonate 24.8, BUN 11, creatinine 0.6, with glucose of 92, albumin 4.0. ASSESSMENT AND PLAN: 1. Hyponatremia. The patient presents with some mild hyponatremia with a serum sodium of 128. Apparently, this has been a chronic issue for the patient and he reports he was first told he had hyponatremia more than 12 years ago. The patient apparently has close followup in [place]. I am unclear as for his exact etiology for his hyponatremia. There may be an element of CHF and volume overload playing a role here. In addition, there may be some of syndrome of inappropriate antidiuretic hormone secretion here as well, which may be secondary to recent surgery. However, I am unclear at this point. At this time, we will check a urine osmolarity and a serum osmolarity. In addition, I will go ahead and give a dose of tolvaptan 30 mg p.o. x 1 and continue to monitor the patient. This should help with water diuresis and should help with serum sodium levels. If his serum sodium is stable tomorrow, he should be cleared for discharge from a renal standpoint. It appears that this is a chronic problem and this can be closely followed up at home with his physicians, who have apparently followed it there. At this time, we will monitor dose on tolvaptan and continue to monitor. 2. Coronary artery disease, status post cardiac stent. The patient had 2 stent procedures done within the last several days. He had successful placement of stent earlier today. At this point, he is feeling well, with no acute complaints. Continue to monitor at this point. Continue to followup with cardiology. 3. Hypertension. Blood pressure is stable. Continue with medications. Renal function is otherwise stable at this time. MD MOLLY Irby , 04:38 PM , 05:52 PM
[2018-01-24] MEDS ORDERED: ASPIRIN EC 81 MG TABEC PO SCH (09:00)
[2018-01-24] MEDS ORDERED: amLODIPine BESYLATE 5 MG TAB PO SCH (09:00)
[2018-01-24] MEDS ORDERED: AMLO10 PO (10:35)
[2018-01-24] MEDS ORDERED: ECASA81 PO (10:35)
--- NOTE | 2018-01-24 10:56 | HHI.NPPN ---
Subjective Interval History at bedside. His sodium has improved. No new concerns. (Joan Summers) Objective Data Data Vital Signs Date Time Temp Pulse Resp B/P (MAP) Pulse Ox O2 Delivery O2 Flow Rate FiO2 01/24/18 10:00 88 01/24/18 09:00 77 01/24/18 08:26 160/64 (96) 01/24/18 08:00 76 01/24/18 07:15 76 01/24/18 07:15 98.5 92 20 200/94 (129) 92 01/24/18 07:15 98 Room Air 01/24/18 06:01 86 01/24/18 05:08 67 01/24/18 04:05 64 01/24/18 03:22 68 18 130/68 (88) 96 01/24/18 03:00 70 01/24/18 02:00 64 01/24/18 01:00 66 01/24/18 00:00 66 01/23/18 23:00 98.1 68 16 166/75 (105) 95 01/23/18 23:00 70 01/23/18 22:00 68 01/23/18 21:52 94 21 01/23/18 21:00 68 01/23/18 20:00 68 01/23/18 19:30 98.5 76 16 147/70 (95) 96 01/23/18 19:30 96 Room Air 01/23/18 19:00 72 01/23/18 18:29 19 01/23/18 18:00 76 01/23/18 17:00 69 01/23/18 16:00 67 01/23/18 15:00 98.1 71 19 140/64 (89) 96 01/23/18 15:00 68 01/23/18 14:00 70 01/23/18 13:00 72 01/23/18 12:00 67 01/23/18 11:30 97.6 69 19 161/82 (108) 97 01/23/18 11:30 66 (Joan Summers) -: 01/24/18 03101/24/18 0317 Imaging Last 72 hours Impressions Chest X-Ray 01/22/18 1329 Signed Impressions: Service Date/Time: Saturday, January 22, 2018 14:16 - CONCLUSION: Cardiomegaly. The patient is status post sternotomy. Ernesto Romo MD (Joan Summers) Physical Exam General Appearance: Well Developed, Well Nourished, Comfortable (Joan Summers) Eyes Eye Exam: Pupils Equal (Joan Summers) Neck Neck Exam: Neck Supple, Trachea Midline (Joan Summers) Pulmonary Resp Exam: Clear Bilaterally, Breath Sounds Equal (Joan Summers) Cardiology CV Exam: Regular, Good Perfusion (Joan Summers) Gastrointestinal/Abdomen GI Exam: Soft, Non-Tender, Bowel Sounds Present (Joan Summers) Musculoskeletal MS Exam: Joints Intact, Normal Gait, Normal Tone, Good Strength (Joan Summers) Integumentary Skin Exam: Clear, Warm, Dry, Intact (Joan Summers) Extremeties Extremities Exam: No Edema, Pedal Pulses Palpable (Joan Summers) Neurologic Neuro Exam: Alert, Awake, Oriented, Speech Clear, Moving All Extremities (Joan Summers) Psychiatric Psych Exam: Appropriate Responses (Joan Summers) Assessment/Plan Discussed Condition With: Patient, Spouse Electrolyte Assessment: Hyponatremia Problem List: (1) Hyponatremia ICD Codes: E87.1 - Hypo-osmolality and hyponatremia Plan: Acute on Chronic Normally sodium is 120s at home Improved, given tolvaptan x 1 dose yesterday. He will follow with PCP in [place] when he is discharged Advised fluid restriction in the interim, 1500 ml. Cleared from discharge from perspective (2) CAD (coronary artery disease) ICD Codes: I25.10 - Atherosclerotic heart disease of [place] coronary artery without angina pectoris Plan: s/p cath this admission, had stent placed hx of CABG in the past Cardiology following (Joan Summers) Plan patient was seen and examined. Agree with above assessment and plan. (Ehsan Sifuentes MD) Problem Qualifiers (1) CAD (coronary artery disease): Qualified Codes: I25.110 - Atherosclerotic heart disease of [place] coronary artery with unstable angina pectoris Joan Summers Jan 24, 2018 10:56 Ehsan Sifuentes MD Jan 24, 2018 11:05
--- NOTE | 2018-01-24 12:30 | HHI.PR ---
Subjective Remarks The patient was resting comfortably in bed. He said his symptoms have resolved. His was at the bedside. They were looking forward to going home soon. They said they will follow-up with the dental services director tomorrow. Discussed with nursing and cardiology. Objective Vitals Vital Signs Date Time Temp Pulse Resp B/P (MAP) Pulse Ox O2 Delivery O2 Flow Rate FiO2 01/24/18 12:00 71 01/24/18 11:00 65 01/24/18 11:00 98.1 66 20 152/72 (98) 95 01/24/18 10:00 88 01/24/18 09:00 77 01/24/18 08:26 160/64 (96) 01/24/18 08:00 76 01/24/18 07:15 76 01/24/18 07:15 98.5 92 20 200/94 (129) 92 01/24/18 07:15 98 Room Air 01/24/18 06:01 86 01/24/18 05:08 67 01/24/18 04:05 64 01/24/18 03:22 68 18 130/68 (88) 96 01/24/18 03:00 70 01/24/18 02:00 64 01/24/18 01:00 66 01/24/18 00:00 66 01/23/18 23:00 98.1 68 16 166/75 (105) 95 01/23/18 23:00 70 01/23/18 22:00 68 01/23/18 21:52 94 21 01/23/18 21:00 68 01/23/18 20:00 68 01/23/18 19:30 98.5 76 16 147/70 (95) 96 01/23/18 19:30 96 Room Air 01/23/18 19:00 72 01/23/18 18:29 19 01/23/18 18:00 76 01/23/18 17:00 69 01/23/18 16:00 67 01/23/18 15:00 98.1 71 19 140/64 (89) 96 01/23/18 15:00 68 01/23/18 14:00 70 01/23/18 13:00 72 I/O 01/23/18 01/23/18 01/23/18 01/24/18 01/24/18 01/24/18 07:00 15:00 23:00 07:00 15:00 23:00 Intake Total 200 ml 390 ml 1530 ml Output Total 750 ml 1175 ml Balance 200 ml -360 ml 355 ml Intake Oral 200 ml 240 ml 720 ml IV Total 150 ml 810 ml Output Urine Total 750 ml 1175 ml # Bowel Movements 4 Result Diagram: 01/24/1831601/24/187 Imaging Last Impressions Chest X-Ray 01/22/18 1329 Signed Impressions: Service Date/Time: Monday, January 22, 2018 14:16 - CONCLUSION: Cardiomegaly. The patient is status post sternotomy. Ernesto Romo MD Objective Remarks GENERAL: This is a well-nourished, well-developed male in no acute distress. SKIN: No rashes, ecchymoses or lesions. Cool and dry. Nitropaste noted right upper chest. HEAD: Atraumatic. Normocephalic. No temporal or scalp tenderness. EYES: Pupils equal round and reactive. Extraocular motions intact. ENT: Nose without bleeding or purulent drainage. Airway patent. NECK: Trachea midline. No lymphadenopathy. CARDIOVASCULAR: Regular rate and rhythm without murmurs, gallops, or rubs. RESPIRATORY: Clear to auscultation. Breath sounds equal bilaterally. No wheezes , rales, or rhonchi. GASTROINTESTINAL: Abdomen soft, non-tender, nondistended. No hepato-splenomegaly , or palpable masses. No guarding. MUSCULOSKELETAL: Extremities without clubbing, cyanosis, or edema. Right groin cath site is clean and with mild bruising. NEUROLOGICAL: Awake and alert. Motor and sensory grossly within normal limits. Nonfocal. Normal speech. PSYCHIATRIC: Appropriate mood and affect. Normal judgment and insight. Procedures Cardiac catheterization 01/23/2018 Medications and IVs Current Medications Medications (Trade) Dose Ordered Sig/Bayron Route Start Time Stop Time Status Last Admin (NS Flush) 2 ml UNSCH PRN IVF 01/22/18 13:30 01/22/18 13:37 (Lipitor) 80 mg HS PO 01/22/18 21:00 01/23/18 21:04 (Coreg) 25 mg BID PO 01/22/18 21:00 01/24/18 07:43 (Vitamin D3) 2,000 units DAILY PO 01/23/18 09:00 01/24/18 07:43 (Colace) 100 mg DAILY PO 01/23/18 09:00 01/23/18 09:30 (Apresoline) 10 mg TID PO 01/22/18 18:00 01/24/18 12:06 (Brilinta) 90 mg BID PO 01/22/18 21:00 01/24/18 07:42 (Allbee C) 1 tab DAILY PO 01/23/18 09:00 01/24/18 07:42 (Cozaar) 100 mg DAILY PO 01/23/18 09:00 01/24/18 07:46 (NS Flush) 2 ml BID IV FLUSH 01/22/18 21:00 01/24/18 07:42 (NS Flush) 2 ml UNSCH PRN IV FLUSH 01/22/18 15:30 (Nitrostat Sl) 0.4 mg Q5M PRN SL 01/22/18 15:30 (Xanax) 0.25 mg Q8H PRN PO 01/22/18 15:30 01/22/18 21:11 (NS Flush) 2 ml UNSCH PRN IV FLUSH 01/22/18 15:30 (NS Flush) 2 ml BID IV FLUSH 01/22/18 21:00 (Tylenol) 650 mg Q4H PRN PO 01/22/18 15:30 (Zofran Inj) 4 mg Q6H PRN IVP 01/22/18 15:30 (Reglan Inj) 5 mg Q6H PRN IV PUSH 01/22/18 15:30 (Tylenol) 650 mg Q6H PRN PO 01/22/18 15:30 01/22/18 15:53 (Roxicodone) 10 mg Q4H PRN PO 01/22/18 15:30 01/24/18 05:27 (Morphine Inj) 2 mg Q3H PRN IV PUSH 01/22/18 15:30 (Morphine Inj) 4 mg Q3H PRN IV PUSH 01/22/18 15:30 (Morphine Inj) 4 mg Q3H PRN IV PUSH 01/22/18 15:30 (Roxicodone) 5 mg Q4H PRN PO 01/22/18 15:30 (Narcan Inj) 0.4 mg UNSCH PRN IV PUSH 01/22/18 15:30 (Elvie-Colace) 1 tab BID PO 01/22/18 21:00 01/23/18 09:30 (Milk Of Magnesia Liq) 30 ml Q12H PRN PO 01/22/18 15:30 (Senokot) 17.2 mg Q12H PRN PO 01/22/18 15:30 (Dulcolax Supp) 10 mg DAILY PRN RECTAL 01/22/18 15:30 (Lactulose Liq) 30 ml DAILY PRN PO 01/22/18 15:30 01/22/18 21:11 (Protonix) 40 mg DAILY PO 01/23/18 09:00 01/24/18 07:43 (Nitroglycerin 2% Oint) 2 inch Q6HR TOPICAL 01/23/18 00:00 01/24/18 12:06 (NS Flush) 2 ml UNSCH PRN IV FLUSH 01/23/18 11:30 (NS Flush) 2 ml BID IV FLUSH 01/23/18 21:00 (Ecotrin Ec) 162 mg DAILY PO 01/24/18 09:00 01/24/18 07:43 (Norvasc) 10 mg DAILY PO 01/24/18 09:00 01/24/18 08:22 A/P Problem List: (1) CAD (coronary artery disease) ICD Code: I25.10 - Atherosclerotic heart disease of [place] coronary artery without angina pectoris (2) HTN (hypertension) ICD Code: I10 - Essential (primary) hypertension (3) Chest pressure ICD Code: R07.89 - Other chest pain Assessment and Plan In summary this is a 59-year-old male patient who presented to the ER for chest pain and elevated blood pressure on 01/19. He underwent a heart cath with percutaneous intervention with drug-eluting stent to the right coronary. He was discharged on 01/22 after being cleared by cardiology. He represented to the ER on the same day of discharge with chest pain. Chest pain s/p PCI showing 2/3 bypass grafts patent, successful placement of INOCENCIO to RCA 01/21 Elevated troponins, 0.19, 0.17, 0.15 NSTEMI Hx of CAD, CABG x 3 2 years ago Cardiology following, appreciate assistance. S/p left heart cath that revealed a 90% stenosis in the proximal mid right posterolateral artery, which was stented. -continue aspirin, Brilinta, statin -Supplemental oxygen as needed - the pt will follow up with cardiology 01/25/18. Hypertension, uncontrolled Patient reports systolic BP of 225 prior to coming into the ED BP still elevated at times. -Continue carvedilol 25 mg twice daily -continue on Losartan 100 mg daily -Continue on hydralazine 10 mg 3 times daily -amlodipine 10 mg daily added. -Continue to monitor BP and adjust treatment accordingly Hyponatremia, asymptomatic Appreciate nephrology recommendations. S/p Tolvaptan. Chronic issue. - outpt follow-up. Hyperlipidemia -continue on Lipitor 80 mg at bedtime GERD -continue on Protonix DVT prophylaxis: Per cardiology Discharge Planning D/c home with cardiology follow-up tomorrow Problem Qualifiers (1) CAD (coronary artery disease): Qualified Codes: I25.110 - Atherosclerotic heart disease of [place] coronary artery with unstable angina pectoris (2) HTN (hypertension): Qualified Codes: I10 - Essential (primary) hypertension Bryant Umaña DO Jan 24, 2018 12:30
--- NOTE | 2018-01-24 20:54 | EKG ---
Date Performed: 01/24/2018 Time Performed: 05:28:04 PTAGE: 67 years EKG: Sinus rhythm with borderline 1st degree A-V block Possible inferior infarct - age undetermined Abnormal ECG PREVIOUS TRACING : 01/23/2018 01.54 Since the previous tracing, no significant change noted DOCTOR: Angus Mireles Interpretating Date/Time 01/24/2018 20:54:04
--- NOTE | 2018-01-28 11:54 | MB ---
cc: Ed Baker MD DATE: 01/28/2018 INDICATION: Unstable angina. HISTORY OF PRESENT ILLNESS: This is a very nice 67-year-old gentleman who initially came in from vacation from [place]. He presented to the Emergency Department 01/20/2017 with a new onset substernal chest pain. I took him to the cardiac catheterization lab where he was found to have an occluded vein graft to the right coronary artery and I proceeded to intervene on the mid right coronary artery placing a drug-eluting stent. Two days later, the patient presented again with recurrent substernal chest pain over the weekend. He was brought back to the catheterization lab by Dr. Forutne. At that point, he underwent a percutaneous intervention to a posterolateral branch and was discharged. Since that time, he still has had very reproducible exertional angina. I started him on isosorbide 60 mg a day as an outpatient. He did have mild improvement in symptoms, but continued to have recurrent chest pain with heavy exertion. 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 We increased his isosorbide to 60 mg twice daily. Despite that, he still had some intermittent even resting chest pain symptoms. He knows what his angina feels like and this is classic symptoms for him. We elected to proceed to bring him back for cardiac catheterization. I reviewed the films in detail from both recent heart catheterizations. There appeared to be an eccentric hazy lesion in the distal right coronary artery and a possible ostial lesion in the posterior descending branch. Given the patient's very suggestive symptoms, we elected to proceed with a planned percutaneous intervention to eliminate any residual right coronary artery disease causing his issues. His recent stress test had showed the inferior abnormality and both prior diagnostic angiograms showed that the entire left circulation looked okay. PAST MEDICAL HISTORY: Coronary artery disease, recent percutaneous interventions in addition to prior coronary bypass surgery, hypertension, and hyperlipidemia. ALLERGIES: NO KNOWN DRUG ALLERGIES. SOCIAL HISTORY: Quit tobacco use 30 years ago. No alcohol use. PHYSICAL EXAMINATION: VITAL SIGNS: Stable. GENERAL: Alert and oriented x 3 in no acute distress. HEENT: Shows pupils reactive to light and accommodates. Extraocular movements are intact. NECK: No elevation of jugular venous distention. No thyromegaly. No lymphadenopathy. No carotid bruits. LUNGS: Clear to auscultation bilaterally. CARDIOVASCULAR: Regular rate and rhythm without murmurs, rubs or gallops. ABDOMEN: Nontender, nondistended, good bowel sounds. No hepatosplenomegaly. EXTREMITIES: Show no cyanosis, clubbing or edema. Good peripheral pulses. NEUROLOGIC: Cranial nerves intact. Motor and sensory grossly intact. HOME MEDICATIONS: See medication reconciliation. LABORATORY DATA: WBC 6.8, hemoglobin 14.3, platelet count is 182. INR is 1.1. Sodium 133, potassium 4.1, BUN 14, creatinine is 0.92. ASSESSMENT: 1. Classic unstable angina, [employer] Cardiovascular Society class IV. 2. History of coronary disease, coronary bypass surgery and percutaneous intervention. PLAN: I discussed the issues yesterday on the phone with the patient and we scheduled to bring him back for a diagnostic angiogram followed by attempted revascularization of any residual stenosis that could be causing issues within the right coronary artery. He is currently n.p.o. We will plan for a left radial approach. Ed Baker MD [facility]/DL , 11:35 AM , 11:54 AM
== END 2018-01-24 13:00 | disposition home or self-care (01) | DRG 249 ==
LOC: NEPC 13:03 → UNDOADMOB 15:10 → INTOOBSV 15:10 → NEDA 15:10 → NEPHCDU 18:31 → NEDA 18:31 → HCIS 01-23 10:52 → NEPHCDU 01-23 10:52 → OBSVTOIN 01-23 11:17 → HCPC 01-23 11:25 → HCIS 01-23 11:25 → UNDODISOB 01-24 13:00
PROVIDERS: ADMIT Hospitalist; ATTEND Hospitalist
PROC: 02703DZ Dilation of Coronary Artery, One Artery with Intraluminal Device, Percutaneous Approach (ICD-10-PCS; principal; 2018-01-23)
PROC: B2181ZZ Fluoroscopy of Left Internal Mammary Bypass Graft using Low Osmolar Contrast (ICD-10-PCS; 2018-01-23)
PROC: B2111ZZ Fluoroscopy of Multiple Coronary Arteries using Low Osmolar Contrast (ICD-10-PCS; 2018-01-23)
PROC: B2131ZZ Fluoroscopy of Multiple Coronary Artery Bypass Grafts using Low Osmolar Contrast (ICD-10-PCS; 2018-01-23)
PROC: 4A023N7 Measurement of Cardiac Sampling and Pressure, Left Heart, Percutaneous Approach (ICD-10-PCS; 2018-01-23)
PROC: B2151ZZ Fluoroscopy of Left Heart using Low Osmolar Contrast (ICD-10-PCS; 2018-01-23)
DX: I21.4 Non-ST elevation (NSTEMI) myocardial infarction (principal); E87.1 Hypo-osmolality and hyponatremia; I10 Essential (primary) hypertension; I25.810 Atherosclerosis of coronary artery bypass graft(s) without angina pectoris; I25.10 Atherosclerotic heart disease of native coronary artery without angina pectoris; E78.5 Hyperlipidemia, unspecified; I44.0 Atrioventricular block, first degree; I25.2 Old myocardial infarction; K21.9 Gastro-esophageal reflux disease without esophagitis; G47.30 Sleep apnea, unspecified; M19.90 Unspecified osteoarthritis, unspecified site; E66.9 Obesity, unspecified; Z68.36 Body mass index [BMI] 36.0-36.9, adult; Z87.891 Personal history of nicotine dependence; Z95.1 Presence of aortocoronary bypass graft; Z95.5 Presence of coronary angioplasty implant and graft
CPT/HCPCS: 71046; 80048; 80053; 80061; 82550; 82552; 83036; 83735; 83930; 83935; 84100; 84439; 84443; 84484; 85002; 85025; 85610; 85730; 92928; 93005; 93458; 96372; 99152; 99153; C1769; C1876; C1887; C1893; G0378; J1644; J1650; J2250; J3010; J3246; J7030; Q9967

== ENCOUNTER 2018-01-28 06:26 | Day surgery (SDC) | payer MEDICARE, OTHER ==
[~2018-01-28] VITALS: Ht 177.8 cm; Wt 111.6 kg
[~2018-01-28 06:26] MED LIST changes: +AMLO10 PO; -ASPI-516 CHEW; +COLA100C5 PO; +ECASA81 PO
[2018-01-28] MEDS ORDERED: IOHEXOL 350 MG/ML 50 ML BTL (for Cath Lab) OTHER ONE (06:27)
[2018-01-28] MEDS ORDERED: IOHEXOL 350 MG/ML 100 ML BTL (for Cath Lab) OTHER ONE (06:27)
[2018-01-28 08:30] VITALS: BP 149/97; PULSE 65; RESP 18; O2SAT 96
[2018-01-28] MEDS ORDERED: ISOS60TA PO (08:54)
[2018-01-28] MEDS ORDERED: MIDAZOLAM HCL 2 MG/2 ML VIAL ONE (10:00)
[2018-01-28] MEDS ORDERED: HEPARIN-NS/PF FLUSH BAG 2,000 ML IV FLUSH ONE (10:00)
[2018-01-28] MEDS ORDERED: HEPARIN SODIUM - IV 10,000 UNITS/10 ML VIAL ONE (10:01)
[2018-01-28] MEDS ORDERED: NITROGLYCERIN INJ 5 ML ONE (10:02)
[2018-01-28] MEDS ORDERED: BIVALIRUDIN 250 MG VIAL ONE (10:48)
[2018-01-28] MEDS ORDERED: BIVALIRUDIN INJ 250 MG in SODIUM CHLORIDE 0.9% INJ 50 ML IV SCH (11:25)
[2018-01-28] MEDS ORDERED: MISC INFORMATION XX ONE (11:30)
[2018-01-28] MEDS ORDERED: BACITRACIN OINT 0.9 GM PKT TOP ONE (11:30)
[2018-01-28] MEDS ORDERED: oxyCODONE/ACETAMINOPHEN 5 MG/325 MG TAB PO PRN (11:30)
[2018-01-28] MEDS ORDERED: LIDOCAINE 2% JELLY 30 ML TUBE TOP PRN (11:30)
--- NOTE | 2018-01-28 11:39 | CATHPROC ---
[place] HIS Report Study Information Study Number Admission Scheduled Start Study Start [id number] Jan 28 2018 6:26AM 01/28/2018 Jan 28 2018 9:49AM [place] Service Cardiac Catheterization Admit Source Facility Department Other [facility] - Job Placement Counselor Physician and Clinical Staff Initial Ed Arellano Fundraising Sale Representative Last Malone RN Fundraising Sale Representative Mike Childress RN Recorder Gregoria, Kwame,RT(R) Scrub Wandy Haines,LONG TECH2 Procedures Performed Procedure Location (Site) Vessel Name Coronary Angiograms RCA Right Coronary Drug Eluting Inflatio PDA Prox Right Coronary Drug Eluting Inflatio RCA Dist Right Coronary PTCA PDA Prox Right Coronary PTCA PLV Prox Right Coronary Wire insertion Radial (left) Radial Art. Equipment Time Lead Supply Worker Description Size Mfg Part Number Used/Scraped COPILOT VALVE, BLEEDBACK [id number] 10:47 [employer] Used CONTROL *[id number] COPILOT VALVE, BLEEDBACK [id number] 10:47 [employer] Used CONTROL *[id number] TRANSDUCER, TRUWAVE [id number] 10:17 [employer] HAMMOND * Used W/STOCKCOCK *[id number] 10:53 [employer] BALLOON, 2.0 12MM EMERGE MR 2.0 12MM Used *[id number] *[id number] 10:17 [email or web address] INDUSTRIES PACK, CCL CUSTOM * Used *[id number] 10:17 [email or web address] PACER PEN, SKIN DUAL W/ RULER * Used *[id number] 10:38 [employer] JR 4.0 DXTERITY CATHETER FR 5 Used *[id number] [id number] 11:02 [employer] STENT, 2.25 12MM CUAUHTEMOC 2.25 12MM Used *[id number] 11:14 [employer] STENT, 3.0 30MM CUAUHTEMOC 3.0 30MM Used *[id number] 10:46 [employer] 30 BELA INDEFLATOR Used *[id number] BAND, RADIAL COMPRESSION TR [id number] 11:21 [employer] 24CM Used SHORT 24 *[id number] SHEATH, FR6 RADIAL PRELUDE 10:35 [employer] FR 6 [id number] Used EASE 11CM [id number] 10:38 [employer] WIRE, EXCHANGE 260CM 3MMJ 260CM Used *[id number] 10:17 NAMIC MANIFOLD, 4 PORT * Used *[id number] 10:17 [employer] OMNIPAQUE, 350 MG, 150ML 150ML [id number] Used [id number] 10:17 [employer] BL[employer],WARM AIR CCL * Used *[id number] WIRE, RUNTHROUGH NS FLOPPY [id number] 10:53 [employer] 180CM Used .014 180CM *[id number] Equipment Model, Serial, Lot Number and Expiration Data Description Model Number Serial Number Lot Number Expiration Date JR 4.0 DXTERITY CATHETER [id number] 07-08-2020 STENT, 2.25 12MM CUAUHTEMOC [id number] 10-13-2019 STENT, 3.0 30MM CUAUHTEMOC [id number] 02-04-2019 History: Allergies Allergy Reaction No Known Allergies History: Risk Factors Family History of Hypertension Dyslipidemia Previous NM Previous Heart Failure Premature CAD Yes Yes No No No Prior Valve Prior PCI Prior PCIDate Prior CABG Prior CABGDate Surgery No Yes 01/21/2018 Yes 09/27/2015 Cerebrovascular Peripheral Artery Chronic Lung On Dialysis Diabetes Disease Disease Disease No No No No No History: Stress Tests Stress or Imaging Studies Performed Yes Standard Exercise Stress Test No Stress Echo No Stress Test SPECT No Stress Test CMR No Cardiac CTA Coronary Calcium Score No No History: Other Current Smoker Method Quit Packs a Day Years Used Pack Years No Cigarettes 30 Years Ago 1 5 5 Labs Hgb (g/dl) Hct (%) WBC (l/cumm) Platelets (thousands) 11.60-17.00 35.00-51.00 4.00-11.00 150.00-450.00 14.3 39.8 6.8 182 Glucose (mg/dl) BUN (mg/dl) Creatinine (mg/dl) BUN:Creatinine (1:x) 74.00-106.00 7.00-18.00 0.50-1.30 10.00-20.00 97 14 0.9 15.6 Na (meq/l) K (meq/l) 136.00-145.00 3.50-5.10 132 4.1 INR (PTT:PT) 0.90-1.10 1.1 CPK-MB (ng/ML) 0.50-3.60 Not Drawn Medication Medication Total Dose (Bolus/Oral) Medication Total Dosage/Unit 1% XYLOCAINE 5 mL ANGIOMAX BOLUS 16.5 mL FENTANYL 50 mcg HEPARIN 5000 units NTG (IC) 350 mcg VERSED 2 mg Medications (Bolus/Oral) Medication Time Given Dosage/Unit Administered By Reason VERSED 01/28/2018 10:30:30 AM 1 mg Monroe, Mike 1 mg VERSED given in lab by Mike Childress RN via Peripheral IV. Ordered by Ed Baker. FENTANYL 01/28/2018 10:31:41 AM 25 mcg Monroe, Mike 25 mcg FENTANYL given in lab by Mike Childress RN via Peripheral IV. Ordered by Ed Baker. 1% XYLOCAINE 01/28/2018 10:33:11 AM 5 mL Ed Baker 5 mL 1% XYLOCAINE given in lab by Ed Baker in Left Radial via Subcutaneous. Ordered by Coral Baker. NTG (IC) 01/28/2018 10:33:39 AM 200 mcg Ed Baker 200 mcg NTG (IC) given in lab by Ed Baker via Intra-arterial. Ordered by Ed Baker. HEPARIN 01/28/2018 10:34:55 AM 5000 units Monroe, Mike 5000 units HEPARIN given in lab by Mike Childress RN via Peripheral IV. Ordered by Ed Baker. ANGIOMAX BOLUS 01/28/2018 10:53:55 AM 16.5 mL Monroe, Mike 16.5 mL ANGIOMAX BOLUS given in lab by Mike Childress RN via Peripheral IV. Ordered by Ed Baker. VERSED 01/28/2018 10:54:20 AM 1 mg Monroe, Mike 1 mg VERSED given in lab by Mike Childress RN via Peripheral IV. Ordered by Ed Baker. FENTANYL 01/28/2018 10:55:28 AM 25 mcg Monroe, Mike 25 mcg FENTANYL given in lab by Mike Childress RN via Peripheral IV. Ordered by Ed Baker. NTG (IC) 01/28/2018 11:10:13 AM 150 mcg Ed Baker 150 mcg NTG (IC) given in lab by Ed Baker via Intra-coronary. Ordered by Ed Baker. Medication (Drip) Medication Time Given Dosage/Unit Concentration/Unit Diluent (ml) Solution ANGIOMAX DRIP 01/28/2018 11:00:31 AM 1.75 mg/kg/hr 250 mg 50 NaCl .9 1.75 mg/kg/hr ANGIOMAX DRIP given in lab by Mike Childress RN via Peripheral IV. Pump/Drip Flow = 39.0 6 ml/hr using NaCl .9 with a concentration of 250 mg in 50 ml. Ordered by Ed Baker. IV Solutions 01/28/2018 10:08:24 AM 0 mL (IV) 500 NaCl .9 Patient arrived on IV Solutions given by Ed Baker in Left Hand via Peripheral IV. Pump/Drip Caleb w = 20 ml/hr using NaCl .9. Ordered by Ed Baker. Initial Case Assessment Cardiovascular HR Rhythm NIBP Chest Pain 67 sr 159/74 0 Edema Present Skin color Skin None Normal Warm Dry Circulatory - Right Pulses Dorsalis Pedis Femoral 2 2 Scale (0,1,2,3,4,d) Circulatory - Left Pulses Dorsalis Pedis Femoral 2 2 Scale (0,1,2,3,4,d) Neurological State Oriented to time-place- Alert Moves all extremities person Respiration - General Respiration Rate SpO2 (%) O2 (lpm) (B/min) 18 98 0 Final Case Assessment Cardiovascular HR Rhythm NIBP Chest Pain 73 sr 151/74 0 Edema Present Skin color Skin None Normal Warm Dry Circulatory - Right Pulses Dorsalis Pedis Femoral 2 2 Scale (0,1,2,3,4,d) Circulatory - Left Pulses Dorsalis Pedis Femoral Scale (0,1,2,3,4,d) Neurological State Oriented to time-place- Alert Moves all extremities person Respiration - General Respiration Rate SpO2 (%) O2 (lpm) (B/min) 18 96 0 Chronological Log Time Study Chronological Log 10:00:10 Patient arrived via Bed. Positive Allens test performed by Kwame Kinney. 10:00:11 Patient Name, D.O.B, / Armband Verified By R.N. 10:00:13 Consent signed by the physician and the patient and verified by the Job Placement Counselor staff. 10:00:55 Pre-op and post- op instructions given; patient acknowledges understanding of instructions. 10:00:57 Verbal Stimulation=2 Physical Stimulation=2 Airway=2 Respiration=2 TOTAL=8. (0=absent, 1=li mited, 2=present) 10:01:05 Presedation assessment performed by Job Placement Counselor RN. 10:01:09 Patient has been NPO for More than 6Hrs. 10:06:44 Skin Breakdown-noted is bruising in right groin. 10:07:43 Reference ECG taken 10:08:15 A # 20 IV was noted in the Hand (left). Grade = 0 Patient arrived on IV Solutions given by Ed Baker in Left Hand via Peripheral IV. Pump/Dr ip Flow = 20 ml/hr 10:08:24 using NaCl .9. Ordered by Ed Baker. Vitals capture started with the following parameters, Patient=Adult, Interval=5 min, Initial Pr atqefs=348 mmHg, 10:08:44 Deflation Rate=5 mmHg, Cuff placed on Left Arm 10:08:50 History and physical on the chart or being dictated. 10:09:32 HR=69 bpm, BDKP=533/74 mmhg, SpO2=95.0 %, Resp=10 B/min, Lamar=2 Assessment: Initial Case, HR=67 BPM, Rhythm=sr, KHLJ=985/74 mmhg, Chest Pain=0, Edema=None, Col or=Normal, Skin = Warm, Dry Right Pulses: Asim Ped=2, Femoral=2 10:09:56 Left Pulses: Asim Ped=2, Femoral=2, Radial=2 Neurological: State=Alert, Ox3, HURLEY Respiration: Resp=18 B/min, SpO2=98 %, O2=0 lpm 10:14:33 HR=69 bpm, KBYT=219/79 mmhg, SpO2=96.0 %, Resp=11 B/min, Lamar=2 10:19:34 HR=69 bpm, EPYI=351/74 mmhg, SpO2=95.0 %, Resp=9 B/min, Lamar=2 10:23:22 Pressure channel 1 zeroed. 10:24:33 HR=66 bpm, MGXZ=743/84 mmhg, SpO2=95.0 %, Resp=10 B/min, Lamar=2 10:29:34 HR=67 bpm, MDMS=379/74 mmhg, SpO2=96.0 %, Resp=8 B/min, Lamar=2 10:30:30 1 mg VERSED given in lab by Mike Childress RN via Peripheral IV. Ordered by Ed Baker. 10:31:15 Presedation re-assessment performed by Job Placement Counselor RN. 10:31:17 Case Start 10:31:18 Verbal Stimulation=2 Physical Stimulation=2 Airway=2 Respiration=2 TOTAL=8. (0=absent, 1=li mited, 2=present) 10:31:41 25 mcg FENTANYL given in lab by Mike Childress, RN via Peripheral IV. Ordered by Dorota Baker. Time Out. Correct patient, correct procedure, correct physician, power injector not loaded with contrast with surgical 10:31:50 team present. Time Out Concurred by MD and individual staff in procedure. Not loaded at this ti me. 10:33:11 5 mL 1% XYLOCAINE given in lab by Ed Baker in Left Radial via Subcutaneous. Ordered b y Ed Baker. 10:33:25 Access site was Left Radial Artery. 10:33:39 200 mcg NTG (IC) given in lab by Ed Baker via Intra-arterial. Ordered by Dorota Baker 10:34:21 In the Radial (left) the SHEATH, FR6 RADIAL PRELUDE EASE 11CM FR [address] by Ed Baker. 10:34:33 HR=69 bpm, IPIY=272/62 mmhg, SpO2=94.0 %, Resp=9 B/min, Lamar=2 10:34:55 5000 units HEPARIN given in lab by Mike Childress, PUSHPA via Peripheral IV. Ordered by St sharmaine Baker. A JR 4.0 DXTERITY CATHETER FR 5 was advanced over a wire. OMNIPAQUE, 350 MG, 150ML 150ML was us ed for 10:38:03 injections. Recorded Pressure: Ao, HR=69, Condition=Condition 1 10:39:09 (Aorta) Ao 129/59/88 10:39:27 The RCA was injected and visualized at various angles. OMNIPAQUE, 350 MG, 150ML 150ML used . 10:39:34 HR=69 bpm, AUMD=365/67 mmhg, SpO2=94.0 %, Resp=14 B/min, Lamar=2 10:44:33 HR=76 bpm, GILY=022/72 mmhg, SpO2=94.0 %, Resp=13 B/min, Lamar=2 After removing the current catheter a H-STICK GUIDE CATHETER FR 6 was advanced over a WIRE, EXC HANGE 260CM 10:44:59 3MMJ 260CM. 10:49:34 HR=71 bpm, TVKA=673/72 mmhg, SpO2=94.0 %, Resp=13 B/min, Lamar=2 10:53:14 A WIRE, RUNTHROUGH NS FLOPPY .014 180CM 180CM was inserted via Radial (left). 10:53:55 16.5 mL ANGIOMAX BOLUS given in lab by Mike Childress RN via Peripheral IV. Ordered by Ed Baker. 10:54:20 1 mg VERSED given in lab by Mike Childress RN via Peripheral IV. Ordered by Ed Baker. 10:54:37 HR=66 bpm, KSUP=979/74 mmhg, SpO2=95.0 %, Resp=17 B/min, Lamar=2 10:55:28 25 mcg FENTANYL given in lab by Mike Childress RN via Peripheral IV. Ordered by Dorota Baker en. 10:56:23 Interventional wire has crossed the lesion A BALLOON, 2.0 12MM EMERGE MR 2.0 12MM was inserted over WIRE, RUNTHROUGH NS FLOPPY .014 180CM 180CM 10:57:29 via the PDA Prox. A BALLOON, 2.0 12MM EMERGE MR 2.0 12MM over a WIRE, RUNTHROUGH NS FLOPPY .014 180CM 180CM in e PDA 10:57:41 Prox was inflated using a 30 BELA INDEFLATOR at 8 bela for 25 sec. 10:59:27 Balloon Removed. 10:59:34 HR=81 bpm, RVGH=157/72 mmhg, SpO2=93.0 %, Resp=16 B/min, Lamar=2 1.75 mg/kg/hr ANGIOMAX DRIP given in lab by Mike Childress RN via Peripheral IV. Pump/Drip Flow = 39.06 ml/hr 11:00:31 using NaCl .9 with a concentration of 250 mg in 50 ml. Ordered by Ed Baker. A STENT, 2.25 12MM CUAUHTEMOC 2.25 12MM was advanced through a H-STICK GUIDE CATHETER FR 6 over a WIR E, 11:01:54 RUNTHROUGH NS FLOPPY .014 180CM 180CM. A STENT, 2.25 12MM CUAUHTEMOC 2.25 12MM was deployed using a 30 BELA INDEFLATOR at 12 atmospheres for 10 seconds 11:02:15 in the PDA Prox. 11:03:57 Delivery device removed 11:04:35 HR=73 bpm, UFDY=412/73 mmhg, SpO2=93.0 %, Resp=18 B/min, Lamar=2 11:06:23 wire re-routed down PLV. A BALLOON, 2.0 12MM EMERGE MR 2.0 12MM was inserted over WIRE, RUNTHROUGH NS FLOPPY .014 180CM 180CM 11:07:04 via the PLV Prox. A BALLOON, 2.0 12MM EMERGE MR 2.0 12MM over a WIRE, RUNTHROUGH NS FLOPPY .014 180CM 180CM in th e PLV 11:07:18 Prox was inflated using a 30 BELA INDEFLATOR at 8 bela for 45 sec. A BALLOON, 2.0 12MM EMERGE MR 2.0 12MM over a WIRE, RUNTHROUGH NS FLOPPY .014 180CM 180CM in th e PLV 11:08:59 Prox was inflated using a 30 BELA INDEFLATOR at 14 bela for 45 sec. 11:09:34 HR=76 bpm, KBSH=274/76 mmhg, SpO2=93.0 %, Resp=19 B/min, Lamar=2 11:10:09 Balloon Removed. 11:10:13 150 mcg NTG (IC) given in lab by Ed Baker via Intra-coronary. Ordered by Dorota Baker en. A STENT, 3.0 30MM CUAUHTEMOC 3.0 30MM was advanced through a H-STICK GUIDE CATHETER FR 6 over a WIRE, 11:13:41 RUNTHROUGH NS FLOPPY .014 180CM 180CM. 11:14:35 HR=69 bpm, PCAG=806/73 mmhg, SpO2=94.0 %, Resp=7 B/min, Lamar=2 A STENT, 3.0 30MM CUAUHTEMOC 3.0 30MM was deployed using a 30 BELA INDEFLATOR at 12 atmospheres for 10 seconds in 11:14:35 the RCA Dist. 11:15:02 Delivery device removed 11:15:58 Wire removed 11:17:39 Catheter was removed 11:19:36 HR=77 bpm, TVAU=013/74 mmhg, SpO2=95.0 %, Resp=15 B/min, Lamar=2 Assessment: Final Case, HR=73 BPM, Rhythm=sr, YFIG=512/74 mmhg, Chest Pain=0, Edema=None, Color =Normal, Skin = Warm, Dry Right Pulses: Asim Ped=2, Femoral=2 11:21:55 Left Pulses: Radial=2 Neurological: State=Alert, Ox3, HURLEY Respiration: Resp=18 B/min, SpO2=96 %, O2=0 lpm 11:23:24 Catheter(s) removed without difficulty 11:23:49 Case End 11:24:23 Sterile dressing applied to site 11:24:25 No case complications noted. 11:24:27 Cine recording checked. 11:24:30 Bedside Report will be given. 11:24:38 HR=75 bpm, SMIM=958/77 mmhg, SpO2=96.0 %, Resp=12 B/min, Lamar=2 11:28:20 Implantable Device card placed in patient's chart. Radial Compression Device Used. 15 mLs of air placed in BAND, RADIAL COMPRESSION TR SHORT 24 24 CM. Affected 11:28:53 hand 96 % O2 saturation. 11:29:41 HR=72 bpm, VKXM=481/73 mmhg, Resp=15 B/min, Lamar=2 11:35:14 Vitals capture stopped. 11:37:58 Patient moved to [facility] End Study - Contrast Media Used In Study Contrast Total Opened (mL) Total Used (mL) Total Wasted (mL) Omnipaque 245 245 0 End Study - Maximum Contrast Load Max Contrast Load (mL) 619.9 End Study - Radiation Exposure Fluoro Time (minutes) 10.2 End Study - Patient Disposition Complications Transferred To Interventional Outcome No Telemetry Bed successful
--- NOTE | 2018-01-28 12:02 | MA ---
cc: Ed Baker MD DATE: 01/28/2018 INDICATION: Unstable angina. PROCEDURES PERFORMED: 1. Fluoroscopy with interpretation. 2. Coronary angiography. 3. Percutaneous intervention with drug-eluting stents to the posterior descending branch and distal right coronary artery. 4. Percutaneous transluminal angioplasty of the posterolateral branch. METHODS: Risks, benefits and alternatives were discussed with the patient. The patient understood and consented to the procedure. The patient was brought into the catheterization lab, placed on the catheterization table. The left wrist was prepped and draped in sterile fashion. The left wrist was anesthetized with 2% lidocaine. The left radial artery was cannulated and a 6-Macedonian, 11 cm sheath was placed without difficulty and 5000 international units of heparin and 200 mcg intraarterial nitroglycerin were administered. CORONARY ANGIOGRAPHY: 1. Left coronary circulation was not selectively engaged given 2 recent diagnostic angiograms. 2. Right coronary artery was selectively engaged with a 5-Macedonian JR4 catheter. Angiography as follows: Right coronary stent in the mid segment is widely patent. The posterolateral branch stent appears to be patent. There is a very ostial posterior descending branch, which appears to be 75%. The distal right coronary also has a hazy stenosis in the range of 75%. PERCUTANEOUS INTERVENTION: The right coronary was selectively engaged with a 6-Macedonian hockey stick guide catheter. A 0.014 inch, 180 cm [employer] run-through wire was navigated down to the distal posterior descending branch. A 2.0 x 12 mm RX Euphora balloon was then dilated in the proximal posterior descending branch, followed by a 2.25 x 12 mm RX Resolute [place] stent placement. Repeat angiography showed no residual stenosis. There was little plaque shifting into the ostium of the posterolateral branch. Wires were redirected down the posterolateral branch and a 2.0 x 12 mm balloon was then deployed to 14 atmospheres for a prolonged inflation. Repeat angiography after nitroglycerin showed no significant residual stenosis. Attention was then directed towards the distal right coronary artery stenosis. Given the patient's multiple heart catheterizations, now with recurrent symptoms, we elected to proceed with intervention to rule out any possibility that this had significant stenosis that may not have been fully appreciated by angiography. A 3.0 x 30 mm RX Resolute next stent was then deployed in the distal right coronary artery. Repeat angiography showed no residual stenosis, LAURA 3 flow. CONCLUSIONS: Successful percutaneous intervention to the distal right coronary artery and bifurcation of the posterior descending and posterolateral branches. PLAN: Hopefully, this will translate well to symptomatic improvement. Several angulations showed no residual stenosis. We will continue with the isosorbide. At this point, would not bring the patient back for any further angiograms given that his right coronary artery has been fully revascularized, even within the small branch vessels. Ed Baker MD [facility]/SB , 11:39 AM , 12:00 PM
[2018-01-28] MEDS ORDERED: hydrALAZINE HCL 10 MG TAB PO SCH (13:00)
[2018-01-28] MEDS ORDERED: CARVEDILOL 12.5 MG TAB PO SCH (21:00)
[2018-01-28] MEDS ORDERED: TICAGRELOR 90 MG TAB PO SCH (21:00)
[2018-01-28] MEDS ORDERED: ISOSORBIDE MONONITRATE 60 MG CR TAB (IMDUR) PO SCH (21:00)
[2018-01-28] MEDS ORDERED: ATORVASTATIN 80 MG TAB PO SCH (21:00)
[2018-01-29] MEDS ORDERED: ASPIRIN 81 MG CHEW TAB PO SCH (09:00)
[2018-01-29] MEDS ORDERED: LOSARTAN 50 MG TAB PO SCH (09:00)
[2018-01-29] MEDS ORDERED: VITAMIN B COMPLEX/VIT C TAB PO SCH (09:00)
[2018-01-29] MEDS ORDERED: CHOLECALCIFEROL (VIT D3) 1000 UNIT TAB PO SCH (09:00)
== END 2018-01-28 16:27 | disposition home or self-care (01) ==
LOC: HDOC 06:26 → HDIC 06:26 → HDOC 16:27
PROVIDERS: ATTEND Internal Medicine
DX: I25.110 Atherosclerotic heart disease of native coronary artery with unstable angina pectoris (principal); Z01.818 Encounter for other preprocedural examination
CPT/HCPCS: 86850; 86900; 86901; 92920; 93458; 99152; 99153; C1725; C1769; C1874; C1887; C1893; J0583; J1644; J2250; J3010; Q9967